=== PATIENT | female | born 1990 | race Caucasian/White ===

== ENCOUNTER 2017-02-23 23:40 | Outpatient (CLI) | payer BC, MEDICAID ==
[2017-02-24 00:12] LABS: APPEARANCE,URINE CLEAR; BILIRUBIN,URINE NEGATIVE (NEGATIVE); GLUCOSE, URINE NEGATIVE (NEGATIVE); KETONES,URINE NEGATIVE (NEGATIVE); LEUKOCYTE ESTERASE,URINE NEGATIVE (NEGATIVE); NITRITE,URINE NEGATIVE (NEGATIVE); PROTEIN,URINE NEGATIVE (NEGATIVE); URINE SPECIFIC GRAVITY 1.009; UROBILINOGEN,URINE NEGATIVE mg/dL (<2.0)
[2017-02-24 00:20] LABS: URINE BARBITURATES SCREEN NEGATIVE; URINE METHADONE SCREEN NEGATIVE; URINE OPIATES LOW NEGATIVE; URINE PHENCYCLIDINE SCREEN NEGATIVE
--- NOTE | 2017-02-25 12:00 | Non Stress Test Report ---
Non Stress Test Datetime Report Generated by CPN: 02/25/2017 12:00 DEMOGRAPHIC EGA NST: 32.2 INDICATION Indication for Study: Ordered by Provider Indication for Study (NST) Other: LC MONITORING Monitor Explained: Monitor Explained; Test Explained; Patient Verbalized Understanding Time on Monitor: 02/23/2017 23:58 Time off Monitor: 02/24/2017 00:52 NST Duration: 54 NST INTERVENTIONS NST Interventions: PO Hydration; Reposition Patient Physician Notified NST: Dr. Alejandro BABY A: [id number] BABY A Movement : Present Contraction Frequency : x2 FHR Baseline : 130 Accelerations : 10X10 Decelerations : None Variability : Moderate 6-25bpm NST Review: Meets Criteria for Reactive NST NST Review and Verified By : Dyan Ortega RN NST Results: Reactive NST REPORT Report Trigger: Send Report
== END 2017-02-24 00:56 | disposition home or self-care (01) ==
LOC: LC 23:40
PROVIDERS: ATTEND Obstetrics & Gynecology
PROC: 4A1HXCZ Monitoring of Products of Conception, Cardiac Rate, External Approach (ICD-10-PCS; principal; 2017-02-23)
DX: O47.03 False labor before 37 completed weeks of gestation, third trimester (principal); Z3A.32 32 weeks gestation of pregnancy
CPT/HCPCS: 59025; 80307; 81001

== ENCOUNTER 2017-02-25 12:00 | Outpatient (CLI) | payer BC, MEDICAID ==
[2017-02-25 12:46] LABS: APPEARANCE,URINE SLIGHTLY-CLOUDY; BILIRUBIN,URINE NEGATIVE (NEGATIVE); GLUCOSE, URINE NEGATIVE (NEGATIVE); KETONES,URINE NEGATIVE (NEGATIVE); LEUKOCYTE ESTERASE,URINE NEGATIVE (NEGATIVE); NITRITE,URINE NEGATIVE (NEGATIVE); PROTEIN,URINE NEGATIVE (NEGATIVE); URINE SPECIFIC GRAVITY 1.016; UROBILINOGEN,URINE NEGATIVE mg/dL (<2.0)
[2017-02-25 12:52] LABS: URINE BARBITURATES SCREEN NEGATIVE; URINE METHADONE SCREEN NEGATIVE; URINE OPIATES LOW NEGATIVE; URINE PHENCYCLIDINE SCREEN NEGATIVE
== END 2017-02-25 12:46 | disposition home or self-care (01) ==
LOC: LC 12:00
PROVIDERS: ATTEND Specialist
PROC: 4A1HXCZ Monitoring of Products of Conception, Cardiac Rate, External Approach (ICD-10-PCS; principal; 2017-02-25)
DX: O47.03 False labor before 37 completed weeks of gestation, third trimester (principal); Z3A.32 32 weeks gestation of pregnancy
CPT/HCPCS: 59025; 80307; 81001

== ENCOUNTER 2017-04-12 08:57 | Inpatient (IN) | payer BC, MEDICAID ==
[2017-04-12 09:35] LABS: APPEARANCE,URINE CLEAR; BILIRUBIN,URINE NEGATIVE (NEGATIVE); GLUCOSE, URINE NEGATIVE (NEGATIVE); KETONES,URINE NEGATIVE (NEGATIVE); LEUKOCYTE ESTERASE,URINE NEGATIVE (NEGATIVE); NITRITE,URINE NEGATIVE (NEGATIVE); PROTEIN,URINE NEGATIVE (NEGATIVE); URINE SPECIFIC GRAVITY 1.005; UROBILINOGEN,URINE NEGATIVE mg/dL (<2.0)
[2017-04-12 09:59] LABS: URINE BARBITURATES SCREEN NEGATIVE; URINE METHADONE SCREEN NEGATIVE; URINE OPIATES LOW NEGATIVE; URINE PHENCYCLIDINE SCREEN NEGATIVE
[2017-04-12] MEDS ORDERED: RINGERS SOLUTION,LACTATED 1,000 ML IV PRN (10:58)
[2017-04-12] MEDS ORDERED: BUPIVACAINE HCL 0.25 % INJ/PF (2.5 MG/1 ML) 30 ML VIAL INFIL ONE (10:58)
[2017-04-12] MEDS ORDERED: BENZOIN/ALOE VERA/STORAX/TOLU TINCTURE 60 ML TP PRN (10:58)
[2017-04-12 12:01] LABS: ABSOLUTE BASOPHILS # (AUTO) 0.1 10^3/uL (0.0-0.2); ABSOLUTE EOSINOPHILS # (AUTO) 0.1 10^3/uL (0.0-0.6); ABSOLUTE LYMPHOCYTES (AUTO) 1.7 10^3/uL (0.5-4.7); ABSOLUTE MONOCYTES (AUTO) 0.3 10^3/uL (0.1-1.4); ABSOLUTE NEUT (AUTO) 7.3 10^3/uL (1.7-8.2); BASOPHILS % (AUTO) 0.5 % (0-2); EOSINOPHILS % (AUTO) 0.6 % (0-6); HEMATOCRIT 36.9 % (36.0-47.0); HEMOGLOBIN 12.2 g/dL (12.0-15.5); HGB HCT DIFFERENCE -0.3; LYMPHOCYTES % (AUTO) 18.4 % (13-45); MEAN CORPUSCULAR HEMOGLOBIN 29.1 pg (27.0-33.4); MEAN CORPUSCULAR VOLUME 88 fl (80-97); MONOCYTES % (AUTO) 3.3 % (3-13); RED BLOOD COUNT 4.19 10^6/uL (3.72-5.28); RED CELL DISTRIBUTION WIDTH 13.1 % (11.5-14.0); SEGMENTED NEUTROPHILS % (AUTO) 77.2 % (42-78); WHITE BLOOD COUNT 9.5 10^3/uL (4.0-10.5)
[2017-04-12] MEDS ORDERED: FENTANYL CITRATE INJ/PF 100 MCG/2 ML AMPUL ONE (14:10)
[2017-04-12] MEDS ORDERED: EPHEDRINE SULFATE INJ 50 MG/1 ML AMPULE ONE (14:11)
[2017-04-12] MEDS ORDERED: FENTANYL/BUPIVACAINE/NS/PF 200 MCG/100 ML RTUINJ EPI ONE (14:11)
[2017-04-12] MEDS ORDERED: PHENYLEPHRINE HCL INJ/PF 10 MG/1 ML SDV ONE (14:11)
[2017-04-12] MEDS ORDERED: BUPIVACAINE HCL 0.25 % INJ/PF (2.5 MG/1 ML) 30 ML VIAL ONE (14:11)
[2017-04-12] MEDS ORDERED: OXYTOCIN/NORMAL SALINE 20 UNIT/1,000 ML RTUINJ ONE ×2 (15:21→20:16)
--- NOTE | 2017-04-12 15:38 | L&D Progress Notes ---
PROGRESS NOTES Datetime Report Generated by CPN: 04/12/2017 15:37 PROGRESS NOTE Impression: Reassuring Heart Rate Procedures: Scalp Electrode; Sterile Vag Exam Plan: Continue Present Management; Augmentation Informed Consent Obtained: Vaginal Delivery Vital Signs : Reviewed; Within Normal Limits Comment: Much more comfortable with epidural AROM with FSE without difficulty Pitocin @ 2 mu Continue pitocin Anticpate VAGINAL EXAM Dilatation: 4 Dilatation: 4 Effacement: 60 Effacement: 80 Station: -1 Station: 0 Contractions: 5-6 MEMBRANES Membranes: Ruptured Membranes: Intact FETUS A FHR - Baseline: 120 Monitoring: External US Variability: Moderate 6-25bpm Accelerations: 15X15 Decelerations: None FHR Category: Category I Estimated Weight (gm): 3600 Presentation: Vertex SIGNATURE SIGNATURE: [id number];[id number] SIGNATURE: [id number] Assignment: Shireen Cardona MD Signature: with User ID: [email or web address] : with User ID: [email or web address]
[2017-04-12] MEDS ORDERED: LIDOCAINE 2%/EPINEPHRINE INJ 20 ML VIAL ONE (17:58)
[2017-04-12] MEDS ORDERED: SODIUM BICARBONATE 8.4% INJ 50 MEQ/50 ML DISP.SYRIN ONE (17:59)
[2017-04-12] MEDS: FENTANYL/BUPIVACAINE/NS/PF 100 ML EPI PRN ×3 (19:16→22:55)
[2017-04-12] MEDS ORDERED: MISOPROSTOL 0.2 MG TABLET ONE (20:15)
[2017-04-12] MEDS ORDERED: LIDOCAINE 1% INJ-PF (10 MG/ML) 30 ML SDV ONE (20:16)
[2017-04-12] MEDS ORDERED: DIPH/PERTUSS(ACELL)/TETANUS VAC/PF 0.5 ML SYR (>=10YO) IM PRN (21:18)
[2017-04-12] MEDS ORDERED: ACETAMINOPHEN WITH CODEINE #3 TABLET PO PRN (21:18)
[2017-04-12] MEDS ORDERED: MEASLES,MUMPS&RUBELLA VACC/PF 0.5 ML VIAL SUBCUT PRN (21:18)
[2017-04-12] MEDS ORDERED: OXYTOCIN/NORMAL SALINE 1,000 ML IV PRN (21:18)
[2017-04-12] MEDS ORDERED: DIBUCAINE 1% OINTMENT 28 GM TP PRN (21:18)
[2017-04-12] MEDS ORDERED: ZOLPIDEM TARTRATE 5 MG TABLET PO PRN (21:18)
[2017-04-12] MEDS ORDERED: BENZOCAINE/MENTHOL AEROSOL SPRAY 56 ML TOP PRN (21:18)
[2017-04-12] MEDS ORDERED: ACETAMINOPHEN WITH CODEINE #3 TABLET ONE (22:07)
[2017-04-12] MEDS ORDERED: IBUPROFEN 800 MG TABLET ONE (22:07)
[2017-04-12] MEDS ORDERED: ONDANSETRON HCL INJ/PF 4 MG/2 ML SDV ONE (23:10)
--- NOTE | 2017-04-13 00:15 | Admission Physical ---
Datetime Report Generated by CPN: 04/13/2017 00:14 CURRENT ADMISSION Hx Assessment: The History has been Reviewed and is Current Chief Complaint: Uterine Contractions Indication for Induction: Not Applicable Admit Plan: Admit to Unit; Initiate Labor Augmentation Protocol ALLERGIES Medication Allergies: Yes Medication Allergies: Penicillins/SV/Anaphylaxis (02/25/2014); Bleach (Sodium Hypochlorite) (02/24/2017); aspirin/SV/BREATHING DIFFI (02/25/2014) Medication Allergies: Penicillins/SV/Anaphylaxis (02/25/2014); aspirin/SV/BREATHING DIFFI (02/25/2014) Latex: No Latex Allergies Food Allergies: None Environmental Allergies: None OBSTETRICAL HISTORY EDC: 04/18/2017 00:00 : 3 Para: 2 Term: 1 : 1 Gestational Diabetes: No Rh Sensitization: No Incompetent Cervix: No VETO: No Infertility: No ART Treatment: No Uterine Anomaly: No IUGR: No Hx Previous C/S: No Macrosomia: No Hx Loss/Stillborn: No PIH: No Hx : No Placenta Previa/Abruption: No Depression/PP Depression: No PTL/PROM: No Post Hemorrhage: No Current Procedures: Ultrasound; NST Obstetrical History Comments: G1 - 2011 - , 36 weeks, boy G2 - 2014 - , girl G3 - current pregnany - surrogate SEE RECORDS Alcohol: No Marijuana : No Cocaine: No Other Illicit Drugs: No Cigarettes: Never Smoker. [id number] MEDICAL HISTORY Diabetes: No Blood Transfusion: No Pulmonary Disease (Asthma, TB): No Breast Disease: No Hypertension: No Client Specialist Surgery: No Heart Disease: No Hosp/Surgery: No Autoimmune Disorder: No Anesthetic Complications: No Kidney Disease: Yes Abnormal Pap Smear: No Neuro/Epilepsy: No Psychiatric Disorders: No Other Medical Diseases: No Hepatitis/Liver Disease: No Significant Family History: No Varicosities/Phlebitis: No Trauma/Violence : No Thyroid Dysfunction: No Medical History Comments: UTI's and Kidney Infections; 2 lypomas removed from back in 2008; T_A removed INFECTIOUS HISTORY Gonorrhea: No Genital Herpes: No Chlamydia: No Tuberculosis: No Syphilis: No Hepatitis: No HIV/AIDS Exposure: No Rash or Viral Illness: No HPV: No PHYSICAL EXAM General: Normal HEENT: Normal Neurologic: Normal Thyroid: Deferred Heart: Normal Lungs: Normal Breast: Deferred Back: Normal Abdomen: Normal Genitourinary Exam: Normal Extremities: Normal DTRs: Normal Pelvic Type: Adequate Physical Exam Comments: pelvis proved 8lbs 4oz Vital Signs: Reviewed VAGINAL EXAM Dilatation: 4 Dilatation: 4 Effacement: 60 Effacement: 80 Station: -1 Station: 0 Contraction Comments: 5-6 MEMBRANES Membranes: Ruptured Membranes: Intact FETUS A EGA: 39.1 Monitoring: External US FHR- Baseline: 135 Variability: Moderate 6-25bpm Accelerations: 15X15 Decelerations: None FHR Category: Category I Estimated Weight (gm): 3600 Presentation: Vertex Admit Comment: Ctx since last night, increaseing in intensity. Denies lof, states active fetus, denies bleeding. Pt is a surrogate this , intended father at bedside with pt has been uncomplicated. GBS neg. Labor, admit to L _ D Pt desires epidural Will augment with pitocin prn Will AROM after epidural. Anticipate PLANS FOR LABOR AND DELIVERY Labor and Delivery: Cord Blood Donation Pain Management: Epidural Feeding Preference: Breast Benefit of Breast Feed Discussed: Yes Circumcision: No INFORMED CONSENT Informed Consent Obtained: Vaginal Delivery Assignment: Shireen Cardona MD Signature: with User ID: [email or web address] : with User ID: [email or web address]
[2017-04-13] MEDS: IBUPROFEN 800 MG TABLET PO SCH ×3 (06:07→21:01)
[2017-04-13] MEDS: ACETAMINOPHEN WITH CODEINE #3 TABLET PO PRN ×4 (06:09→21:02)
[2017-04-13 08:23] LABS: HEMATOCRIT 32.6 % (36.0-47.0); HEMOGLOBIN 10.9 g/dL (12.0-15.5); HGB HCT DIFFERENCE 0.1; MEAN CORPUSCULAR HEMOGLOBIN 29.1 pg (27.0-33.4); MEAN CORPUSCULAR HGB CONC 33.3 g/dL (32.0-36.0); MEAN CORPUSCULAR VOLUME 87 fl (80-97); RED BLOOD COUNT 3.74 10^6/uL (3.72-5.28); RED CELL DISTRIBUTION WIDTH 13.2 % (11.5-14.0); WHITE BLOOD COUNT 9.1 10^3/uL (4.0-10.5)
[2017-04-13] MEDS: FERROUS SULFATE 325 MG TABLET PO SCH ×2 (09:41→17:04)
[2017-04-13] MEDS: DOCUSATE SODIUM 100 MG CAPSULE PO SCH ×2 (09:41→17:04)
[2017-04-13] MEDS: PRENATAL VITAMIN W-O CA NO5/FE FUMARATE/FA CAPSULE PO SCH (09:41)
[2017-04-13] MEDS: SENNOSIDES/DOCUSATE 8.6-50 MG 1 EACH TABLET PO SCH (09:42)
--- NOTE | 2017-04-13 12:37 | PDOC PROGRESS REPORT ---
Subjective-OB Subjective: Post Delivery Day: 27 year old G3 now P3. Voiding, ambulating and pumping without difficulty. Denies any needs at this time Physical Exam (OB) Vital Signs: Temp Pulse Resp BP Pulse Ox 98.2 F 77 15 111/68 99 04/13/17 08:10 04/13/17 08:10 04/13/17 08:10 04/13/17 08:10 04/13/17 08:10 Intake & Output 04/12/17 04/13/17 04/14/17 06:59 06:59 06:59 Intake Total 900 Balance 900 Weight 87.75 kg - General General Appearance: Appears well In distress: None - Episiotomy/Laceration Site Condition: N/A - Lochia Lochia Amount: Small 10-25 ml Lochia Color: Rubra/Red - Abdomen Description: Soft, Round Hernia Present: No Fundal Description: Firm, Midline Fundal Height: u/u - u/2 - Respiratory Respiratory Status: No respiratory distress - Extremities Upper extremity: Normal inspection Lower extremities: Normal inspection - Neurological Cognition: Normal Orientation: AAOx4 - Psychological Associated symptoms: Normal affect, Normal mood Objective-Diagnostic Laboratory: 04/13/17 08:07 04/12/17 04/12/17 04/13/17 11:45 11:45 08:07 WBC 9.5 9.1 RBC 4.19 3.74 Hgb 12.2 10.9 L Hct 36.9 32.6 L MCV 88 87 MCH 29.1 29.1 MCHC 33.0 33.3 RDW 13.1 13.2 Plt Count 200 160 Seg Neutrophils % 77.2 Lymphocytes % 18.4 Monocytes % 3.3 Eosinophils % 0.6 Basophils % 0.5 Absolute Neutrophils 7.3 Absolute Lymphocytes 1.7 Absolute Monocytes 0.3 Absolute Eosinophils 0.1 Absolute Basophils 0.1 Blood Type B POSITIVE Antibody Screen NEGATIVE Assessment and Plan(PN) - Assessment and Plan (1) Vaginal delivery Is this a current diagnosis for this admission?: YesPlan: continue stay (2) Acute blood loss anemia Is this a current diagnosis for this admission?: YesPlan: ferrous sulfate supplementation and inc. dietary iron - Time Spent with Patient Time with patient: 15-25 minutes Medications reviewed and adjusted accordingly: Yes - Disposition Anticipated Discharge: Home Within: within 24 hours
--- NOTE | 2017-04-13 13:57 | Delivery Summary ---
Del Sum A-C Datetime Report Generated by CPN: 04/13/2017 13:57 DELIVERY PERSONNEL DELIVERY PERSONNEL: [id number];[id number] DELIVERY PERSONNEL: [id number];[id number] DELIVERY PERSONNEL: [id number] Delivery Doctor:: Shireen Cardona MD Labor and Delivery Nurse:: Cady Glover, MARE Nursery Nurse:: Marianna Grier RN Metal Casket Assembler/PRACTICE LEAD: Ginger Burciaga, ST MATERNAL INFORMATION Delivery Anesthesia: Epidural; Pudendal Medications After Delivery: Pitocin Drip 20 Units/1000ml NSS Estimated Blood Loss (ml): 250 Maternal Complications: None Provider Comments: Epidural not working. REviewed pudendal block with pt and Pudendal Block performed in usual fashion with 20ml of lidocaine. VMI delivered in ADRIAN presentation with loose nuchal cord delivered through. Shoulders and body delivered without difficulty. Cord doubly clamped and cut and to warmer for NRP. Cord blood obtained for cord collection kit. Placenta delivered intact spontaneously. FF at U. No perineal laceration. Patient and baby stable upon provider leaving the room. Apgars 9/9. weight pending. LABOR SUMMARY EDC: 04/18/2017 00:00 No. Babies in Womb: 1 Attempted: No Labor Anesthesia: Epidural LABOR INFORMATION Reason for Induction: Not Applicable Onset of Labor: 04/12/2017 09:00 Complete Dilatation: 04/12/2017 20:30 Oxytocin: Augmentation Group B Beta Strep: NEGATIVE Antibiotics # of Doses: 0 Steroids Given: None Reason Steroids Not Administered: Not Applicable MEMBRANES Membranes Rupture Method: Artificial Rupture of Membranes: 04/12/2017 15:29 Length of Rupture (hr): 5.13 Amniotic Fluid Color: Clear Amniotic Fluid Amount: Small Amniotic Fluid Odor: Normal STAGES OF LABOR Stage 1 hr: 11 Stage 1 min: 30 Stage 2 hr: 0 Stage 2 min: 7 Stage 3 hr: 0 Stage 3 min: 8 Total Time in Labor hr: 11 Total Time in Labor min: 45 VAGINAL DELIVERY Episiotomy: None Laceration Extension: N/A Laceration Type: None Laceration Repair: Not Applicable Laceration Repair Note: no perineal laceration Sponge Count Correct: N/A (Annotations: Data stored by [facility] on behalf of user) Sponge Count Correct: Yes Sharps Count Correct: Yes CSECTION DELIVERY Primary Indication: N/A Secondary Indication: N/A CSection Incision: N/A BABY A INFORMATION Infant Delivery Date/Time: 04/12/2017 20:37 Method of Delivery: Vaginal Born in Route : No : N/A Forceps: N/A Vacuum Extraction: N/A Shoulder Dystocia : No PRESENTATION/POSITION BABY A Presentation: Cephalic Presentation: Cephalic Cephalic Presentation: Vertex Vertex Position: OA Breech Presentation: N/A PLACENTA INFORMATION BABY A Placenta Delivery Time : 04/12/2017 20:45 Placenta Method of Delivery: Spontaneous Placenta Status: Delivered SCORES BABY A Heart Rate 1 min: >100 bpm Resp Effort 1 min: Good Cry Reflex Irritability 1 min: Cough or Sneeze or Pulls Away Muscle Tone 1 min: Active Motion Color 1 min: Body [place], Extremities Blue Resuscitation Effort 1 min: Tactile Stimulation SCORE 1 MIN: 9 Heart Rate 5 min: >100 bpm Resp Effort 5 min: Good Cry Reflex Irritability 5 min: Cough or Sneeze or Pulls Away Muscle Tone 5 min: Active Motion Color 5 min: Body [place], Extremities Blue Resuscitation Effort 5 min: N/A SCORE 5 MIN: 9 INFORMATION BABY A Gestational Age at Delivery: 39.1 Gestational Status: Full Term- 39- 40.6 Weeks Outcome : Liveborn Condition : Stable Sex: Male IDENTIFICATION BABY A Infant Verification Date/Time: 04/12/2017 20:44 ID Band Number: [id number] Mother's Name Verified: Yes Infant RN Verifying Infant: R Juan, RNC Additional Verifying Personnel: D [employer], US WEIGHT/LENGTH BABY A Birthweight (gm): 3280 Weight (lb): 7 Infant Weight (oz): 4 Infant Length (in): 20.00 Infant Length (cm): 50.80 CORD INFORMATION BABY A No. Cord Vessels: 3 Nuchal Cord : Around Neck x1, Loose Cord Blood Taken: Yes-For Storage (Mom's Blood type +) Infant Suction: Mouth; Nose ASSESSMENT BABY A Complications: None Physical Findings at Delivery: Within Normal Limits Respirations: Appears Normal Skin to Skin: No Skin to Skin Time (min): 0 [facility]/ALS Called : No Transferred To: Remains with Mother BABY B INFORMATION : N/A SIGNATURES Signature: with User ID: [email or web address]
[2017-04-13] MEDS ORDERED: ONDANSETRON HCL 8 MG TABLET PO PRN (19:23)
[2017-04-14] MEDS: ACETAMINOPHEN WITH CODEINE #3 TABLET PO PRN ×2 (02:06→07:58)
[2017-04-14] MEDS: IBUPROFEN 800 MG TABLET PO SCH (05:57)
[2017-04-14 08:10] VITALS: BP 115/68
[2017-04-14] MEDS: FERROUS SULFATE 325 MG TABLET PO SCH (10:13)
[2017-04-14] MEDS: DOCUSATE SODIUM 100 MG CAPSULE PO SCH (10:13)
[2017-04-14] MEDS: PRENATAL VITAMIN W-O CA NO5/FE FUMARATE/FA CAPSULE PO SCH (10:13)
[2017-04-14] MEDS: SENNOSIDES/DOCUSATE 8.6-50 MG 1 EACH TABLET PO SCH (10:13)
--- NOTE | 2017-04-14 10:25 | PDOC PROGRESS REPORT ---
Subjective-OB Subjective: Post Delivery Day: 27 year old. Denies any needs at this time. Ready to go home. Physical Exam (OB) Vital Signs: Temp Pulse Resp BP Pulse Ox 97.8 F 69 15 115/68 100 04/14/17 08:00 04/14/17 08:00 04/14/17 08:00 04/14/17 08:00 04/14/17 08:00 Intake & Output 04/13/17 04/14/17 04/15/17 06:59 06:59 06:59 Intake Total 900 500 Balance 900 500 Weight 87.75 kg - Lochia Lochia Amount: Small 10-25 ml Lochia Color: Rubra/Red - Abdomen Description: Tender, Soft, Round Hernia Present: No Bowel Sounds: Normoactive Flatus Presence: Present Stool: No Fundal Description: Firm Fundal Height: u/u - u/2 Objective-Diagnostic Laboratory: 04/13/17 08:07 Assessment and Plan(PN) - Time Spent with Patient Medications reviewed and adjusted accordingly: Yes - Disposition Anticipated Discharge: Home
--- NOTE | 2017-04-14 10:33 | PDOC DISCHARGE SUMMARY ---
Final Diagnosis Discharge Date: 04/14/17 - Final Diagnosis (1) Acute blood loss anemia Is this a current diagnosis for this admission?: Yes (2) Surrogate Is this a current diagnosis for this admission?: Yes (3) Vaginal delivery Is this a current diagnosis for this admission?: Yes Discharge Data - Discharge Medication Home Medications: Pnv No.122/Iron/Folic Acid [ Multi Tablet] 1 each PO DAILY 02/24/17 Docusate Sodium [Colace 100 mg Capsule] 100 mg PO BID #30 capsule 04/14/17 Gestational Age: 39.1 wks Reason(s) for Admission: Onset of Labor Procedures: Ultrasound Intrapartum Procedure(s): Spontaneous Vaginal Delivery - Data Baby 1 Male at 1 minute: 9 at 5 minutes: 9 Weight: 3.289 kg Home with Mother: No - Surrogate Complications: No - Diagnosis Test Laboratory: Temp Pulse Resp BP Pulse Ox 97.8 F 69 15 115/68 100 04/14/17 08:00 04/14/17 08:00 04/14/17 08:00 04/14/17 08:00 04/14/17 08:00 04/12/17 04/12/17 04/13/17 09:20 11:45 08:07 RBC 4.19 3.74 Hgb 12.2 10.9 L Hct 36.9 32.6 L Urine Opiates Screen NEGATIVE - Discharge information/Instructions Discharge Activity: Activity As Tolerated, Balance Activity w/Rest, Pelvic Rest , Slowly Increase Activity, No tub bath Discharge Diet: Regular Disposition: HOME, SELF-CARE Follow up with: [facility] in: 4, Weeks
== END 2017-04-14 12:21 | disposition home or self-care (01) | DRG 775 ==
LOC: LC 08:57 → LR 10:52 → 2S 23:20
PROVIDERS: ADMIT Student in an Organized Health Care Education/Training Program; ATTEND Student in an Organized Health Care Education/Training Program
PROC: 10E0XZZ Delivery of Products of Conception, External Approach (ICD-10-PCS; principal; 2017-04-12)
PROC: 4A0HXCZ Measurement of Products of Conception, Cardiac Rate, External Approach (ICD-10-PCS; 2017-04-12)
DX: O69.81X0 Labor and delivery complicated by cord around neck, without compression, not applicable or unspecified (principal); D62 Acute posthemorrhagic anemia; O99.02 Anemia complicating childbirth; Z37.0 Single live birth; Z3A.39 39 weeks gestation of pregnancy; Z88.0 Allergy status to penicillin
CPT/HCPCS: 36415; 80307; 81005; 85025; 85027; 86592; 86850; 86900; 86901; J2370; J2405; J2590; J3010; J3490; S0119

== ENCOUNTER 2017-04-25 11:39 | Day surgery (SDC) | payer BC, MEDICAID ==
[2017-04-25 12:48] LABS: HEMATOCRIT 35.9 % (36.0-47.0); HEMOGLOBIN 11.5 g/dL (12.0-15.5); HGB HCT DIFFERENCE -1.4; MEAN CORPUSCULAR HEMOGLOBIN 28.4 pg (27.0-33.4); MEAN CORPUSCULAR HGB CONC 32.2 g/dL (32.0-36.0); MEAN CORPUSCULAR VOLUME 88 fl (80-97); RED BLOOD COUNT 4.06 10^6/uL (3.72-5.28); WHITE BLOOD COUNT 5.6 10^3/uL (4.0-10.5)
[2017-04-25] MEDS ORDERED: HYDROMORPHONE HCL INJ/PF 2 MG/ML AMPULE ONE (13:03)
[2017-04-25] MEDS ORDERED: DEXAMETHASONE SOD PHOSPHATE INJ 4 MG/1 ML VIAL ONE (13:04)
[2017-04-25] MEDS ORDERED: MIDAZOLAM 2 MG/2 ML INJ ONE (13:04)
[2017-04-25] MEDS ORDERED: PROPOFOL INJ 200 MG/20 ML VIAL IV ONE (13:04)
[2017-04-25] MEDS ORDERED: ONDANSETRON HCL INJ/PF 4 MG/2 ML SDV ONE ×2 (13:04→14:13)
[2017-04-25] MEDS ORDERED: DIPHENHYDRAMINE HCL 50 MG/ML VIAL IV PRN (13:33)
[2017-04-25] MEDS ORDERED: MEPERIDINE HCL/PF INJ 25 MG/1 ML DISP.SYRIN IV PRN (13:33)
[2017-04-25] MEDS ORDERED: ONDANSETRON HCL INJ/PF 4 MG/2 ML SDV IV PRN (13:33)
[2017-04-25] MEDS ORDERED: FENTANYL CITRATE INJ/PF 100 MCG/2 ML AMPUL IV PRN ×3 (13:33)
[2017-04-25] MEDS ORDERED: RINGERS SOLUTION,LACTATED 1,000 ML IV PRN ×2 (13:50→14:25)
[2017-04-25] MEDS: FENTANYL CITRATE INJ/PF 100 MCG/2 ML AMPUL ONE ×2 (14:05→14:10)
[2017-04-25] MEDS ORDERED: KETOROLAC TROMETHAMINE INJ/PF 30 MG/1 ML SDV ONE (14:25)
[2017-04-25] MEDS ORDERED: MORPHINE SULFATE 10 MG/ML INJ INJ PRN ×2 (14:26→14:59)
[2017-04-25] MEDS ORDERED: OXYCODONE-ACETAMINOPHEN 5-325 MG TABLET PO PRN ×2 (14:26→14:27)
[2017-04-25] MEDS ORDERED: IBUPROFEN 800 MG TABLET PO PRN ×2 (14:26→15:00)
[2017-04-25 16:00] VITALS: BP 110/70
--- NOTE | 2017-04-25 16:29 | OPERATIVE REPORT E ---
Operative Report NAME: JULISSA EPSTEIN : 1990 AGE: 27Y DATE OF SURGERY: 04/25/2017 ROOM: PREOPERATIVE DIAGNOSIS: Retained products of conception. POSTOPERATIVE DIAGNOSIS: Retained products of conception. PROCEDURE: Suction dilation and curettage. SURGEON: IDA LIN M.D. ANESTHESIA: Dr. Mix with general endotracheal. FINDINGS: Uterus sounded to approximately 12 weeks. Small to moderate amount of retained placental appearing tissue. Some of the tissue had a purulent appearance that could indicate some low lying infection but otherwise just normal decidual placental type tissue. ESTIMATED BLOOD LOSS: About 20 mL. PROCEDURE IN DETAIL: The patient was taken to the operating room, prepared and draped in a normal sterile fashion in a dorsal lithotomy position. Under sterile conditions, an in-and-out catheter was passed through the bladder and drained approximately 200 mL of clear urine. A sterile speculum was then placed into the vagina and the cervix was grasped on the anterior lip with a single tooth tenaculum. The uterus was then sounded to the above finding. It was noted at the beginning of the procedure that the cervical os was still quite open. The cervix was then dilated to accommodate an 8 mm curved curette for the suction D and C. A Kevorkian curette was first passed and a small amount of placental tissue was obtained. A suction D and C was then performed in a normal fashion with good hemostasis afterwards. A Kevorkian curette was passed once more and the endometrial cavity was scraped adequately and noted to have 360 degrees of grit with the curette indicating that most likely there should be no products of conception retained at this point. Instruments were then removed. The patient was taken down from the dorsal lithotomy position and taken to PACU in stable condition. Sponge, lap, and needle counts were correct x2. DICTATING PHYSICIAN: IDA LIN M.D. [id number] PHY#: [id number] ID: [id number] JOB#: [id number] ACCT: [id number] cc:IDA LIN M.D. >
== END 2017-04-25 15:58 | disposition home or self-care (01) ==
LOC: OROUT 11:39
PROVIDERS: ATTEND Obstetrics & Gynecology
PROC: 10D17ZZ Extraction of Products of Conception, Retained, Via Natural or Artificial Opening (ICD-10-PCS; principal; 2017-04-25 13:30)
DX: O73.1 Retained portions of placenta and membranes, without hemorrhage (principal); N93.9 Abnormal uterine and vaginal bleeding, unspecified; Z79.899 Other long term (current) drug therapy; Z88.0 Allergy status to penicillin; Z88.6 Allergy status to analgesic agent
CPT/HCPCS: 36415; 85027; 88305 ×2; 59812; J2250; J1100; J3010; J1885; J1170; J2405; J2704; 940

== ENCOUNTER 2018-04-11 22:56 | Emergency (ER) | payer SELFPAY ==
[2018-04-11 23:26] VITALS: BP 112/64
== END 2018-04-12 02:24 | disposition left against medical advice (07) ==
LOC: ER 22:56
DX: Z53.21 Procedure and treatment not carried out due to patient leaving prior to being seen by health care provider (principal)

== ENCOUNTER → 2018-08-31 | Outpatient (CLI) | payer BC ==
--- NOTE | 2018-08-31 13:13 | RADIOLOGY REPORT (SQ) ---
EXAM DESCRIPTION: U/S ABDOMEN COMPLETE W/O DOP COMPLETED DATE/TIME: 08/31/2018 12:48 pm REASON FOR STUDY: PELVIC AND PERINEAL PAIN (R10.2) R10.2 PELVIC AND PERINEAL PAIN COMPARISON: None. TECHNIQUE: Dynamic and static grayscale images acquired of the abdomen and recorded on PACS. Additio nal selected color Doppler and spectral images recorded. LIMITATIONS: Midline bowel gas FINDINGS: PANCREAS: Not well seen due to midline bowel gas LIVER: No masses. Echotexture normal. LIVER VASCULATURE: Normal directional flow of the main portal vein and hepatic veins. GALLBLADDER: No stones. Normal wall thickness. No pericholecystic fluid. ULTRASOUND-DETECTED DANIELLE'S SIGN: Negative. INTRAHEPATIC DUCTS AND COMMON DUCT: CBD and intrahepatic ducts normal caliber. No filling defects. INFERIOR VENA CAVA: Normal flow. AORTA: No aneurysm. RIGHT KIDNEY: Normal size. Normal echogenicity. No solid or suspicious masses. No hydronephros is. No calcifications. LEFT KIDNEY: Normal size. Normal echogenicity. No solid or suspicious masses. No hydronephrosi s. No calcifications. SPLEEN: Normal size. No solid masses. PERITONEAL AND PLEURAL SPACES: No ascites or effusions. OTHER: No other significant finding. IMPRESSION: NORMAL ABDOMINAL ULTRASOUND. TECHNICAL DOCUMENTATION: JOB ID: [id number] [employer]- All Rights Reserved Reading location - IP/workstation name: [email or web address]
== END ==
LOC: RAD 10:53
PROVIDERS: ATTEND Obstetrics & Gynecology
DX: R10.2 Pelvic and perineal pain (principal)
CPT/HCPCS: 76700

== ENCOUNTER 2018-10-06 11:10 | Outpatient (CLI) | payer BC, MEDICAID ==
[2018-10-06] MEDS ORDERED: BETAMET ACET/BETAMET NA INJ 6 MG/1 ML ONE (11:38)
[2018-10-06] MEDS ORDERED: BETAMET ACET/BETAMET NA INJ 6 MG/1 ML IM ONE (11:44)
--- NOTE | 2018-10-06 12:37 | Non Stress Test Report ---
Non Stress Test Datetime Report Generated by CPN: 10/06/2018 12:37 DEMOGRAPHIC EGA NST: 32.2 INDICATION Indication for Study: Ordered by Provider VITAL SIGNS Temperature - NST: 98.3 RESP - NST: 16 MONITORING Monitor Explained: Monitor Explained Time on Monitor: 10/06/2018 11:25 Time off Monitor: 10/06/2018 12:08 NST Duration: 43 NST INTERVENTIONS NST Interventions: PO Hydration; Reposition Patient Physician Notified NST: A. Dugan CNM BABY A: [id number] BABY A Movement : Present Contraction Frequency : irritability FHR Baseline : 135 Accelerations : 15X15 Decelerations : None Variability : Moderate 6-25bpm NST Review: Meets Criteria for Reactive NST NST Review and Verified By : Elier Bishop RN NSNeda Results: Reactive NST REPORT Report Trigger: Send Report
== END 2018-10-06 12:25 | disposition home or self-care (01) ==
LOC: LC 11:10
PROVIDERS: ATTEND Obstetrics & Gynecology
DX: Z34.93 Encounter for supervision of normal pregnancy, unspecified, third trimester (principal)
CPT/HCPCS: 59025; J0702

== ENCOUNTER 2018-10-07 11:14 | Outpatient (CLI) | payer BC, MEDICAID ==
[2018-10-07] MEDS ORDERED: BETAMET ACET/BETAMET NA INJ 6 MG/1 ML ONE (11:27)
[2018-10-07] MEDS ORDERED: BETAMET ACET/BETAMET NA INJ 6 MG/1 ML IM ONE (11:35)
== END 2018-10-07 11:45 | disposition home or self-care (01) ==
LOC: LC 11:14
PROVIDERS: ATTEND Obstetrics & Gynecology
PROC: 4A1HXCZ Monitoring of Products of Conception, Cardiac Rate, External Approach (ICD-10-PCS; principal; 2018-10-07)
DX: Z34.83 Encounter for supervision of other normal pregnancy, third trimester (principal)
CPT/HCPCS: 59025; 96372; J0702

== ENCOUNTER 2018-11-07 01:17 | Outpatient (CLI) | payer BC, MEDICAID ==
[2018-11-07 03:55] LABS: APPEARANCE,URINE SLIGHTLY-CLOUDY; BILIRUBIN,URINE NEGATIVE (NEGATIVE); COLOR,URINE YELLOW; GLUCOSE, URINE NEGATIVE (NEGATIVE); KETONES,URINE NEGATIVE (NEGATIVE); LEUKOCYTE ESTERASE,URINE NEGATIVE (NEGATIVE); NITRITE,URINE NEGATIVE (NEGATIVE); PROTEIN,URINE NEGATIVE (NEGATIVE); URINE SPECIFIC GRAVITY 1.015; UROBILINOGEN,URINE NEGATIVE mg/dL (<2.0)
--- NOTE | 2018-11-07 03:57 | Non Stress Test Report ---
Non Stress Test Datetime Report Generated by CPN: 11/07/2018 03:57 DEMOGRAPHIC Test Number: 2 EGA NST: 36.6 INDICATION Indication for Study: Ordered by Provider MONITORING Monitor Explained: Monitor Explained; Test Explained; Patient Verbalized Understanding Time on Monitor: 11/07/2018 01:46 Time off Monitor: 11/07/2018 02:25 NST Duration: 39 NST INTERVENTIONS NST Interventions: PO Hydration Physician Notified NST: Dr Alejandro BABY A: [id number] BABY A Movement : Present Contraction Frequency : 4-5 FHR Baseline : 130 Accelerations : 15X15 Decelerations : None Variability : Moderate 6-25bpm NST Review: Meets Criteria for Reactive NST NST Review and Verified By : CONCHA Braga NST Results: Reactive NST REPORT Report Trigger: Send Report
[2018-11-07 04:14] LABS: URINE AMPHETAMINES SCREEN NEGATIVE; URINE BARBITURATES SCREEN NEGATIVE; URINE BENZODIAZEPINES SCREEN NEGATIVE; URINE COCAINE SCREEN NEGATIVE; URINE MARIJUANA (THC) SCREEN NEGATIVE; URINE METHADONE SCREEN NEGATIVE; URINE PHENCYCLIDINE SCREEN NEGATIVE
== END 2018-11-07 03:50 | disposition home or self-care (01) ==
LOC: LC 01:17
PROVIDERS: ATTEND Obstetrics & Gynecology
PROC: 4A1HXCZ Monitoring of Products of Conception, Cardiac Rate, External Approach (ICD-10-PCS; principal; 2018-11-07)
DX: O47.03 False labor before 37 completed weeks of gestation, third trimester (principal); Z3A.36 36 weeks gestation of pregnancy
CPT/HCPCS: 59025; 80307; 81005

== ENCOUNTER 2018-11-12 00:21 | Inpatient (IN) | payer BC, MEDICAID ==
[2018-11-12] MEDS ORDERED: RINGERS SOLUTION,LACTATED 1,000 ML IV PRN (00:26)
[2018-11-12] MEDS ORDERED: CLINDAMYCIN 900 MG/D5W RTU 900 MG/50 ML RTUPB IV ONE (00:39)
[2018-11-12] MEDS ORDERED: OXYTOCIN 10 UNIT/ML VIAL ONE (00:48)
[2018-11-12] MEDS ORDERED: OXYTOCIN/NORMAL SALINE 20 UNIT/1,000 ML RTUINJ ONE (00:48)
[2018-11-12] MEDS ORDERED: LIDOCAINE 1% INJ-PF (10 MG/ML) 30 ML SDV ONE (00:48)
[2018-11-12] MEDS ORDERED: MISOPROSTOL 0.2 MG TABLET ONE (00:48)
[2018-11-12] MEDS ORDERED: IBUPROFEN 800 MG TABLET ONE ×2 (00:58→09:13)
[2018-11-12] MEDS ORDERED: ACETAMINOPHEN WITH CODEINE #3 TABLET ONE ×3 (00:58→09:15)
[2018-11-12 00:59] LABS: HEMATOCRIT 35.1 % (36.0-47.0); HEMOGLOBIN 11.8 g/dL (12.0-15.5); MEAN CORPUSCULAR HEMOGLOBIN 28.1 pg (27.0-33.4); MEAN CORPUSCULAR HGB CONC 33.7 g/dL (32.0-36.0); MEAN CORPUSCULAR VOLUME 83 fl (80-97); PLATELET COUNT 225 10^3/uL (150-450); RED BLOOD COUNT 4.21 10^6/uL (3.72-5.28); RED CELL DISTRIBUTION WIDTH 13.9 % (11.5-14.0); WHITE BLOOD COUNT 13.3 10^3/uL (4.0-10.5)
--- NOTE | 2018-11-12 01:00 | Admission Physical ---
Datetime Report Generated by CPN: 11/12/2018 00:59 CURRENT ADMISSION Chief Complaint: Uterine Contractions; Suspected Ruptured Membranes Indication for Induction: Not Applicable Admit Impression : Term, Intrauterine ; No Active Labor; Ruptured Membranes Admit Plan: Admit to Unit; Initiate Labor Protocol ALLERGIES Medication Allergies: Penicillins/SV/Anaphylaxis (11/07/2018); Bleach (Sodium Hypochlorite) (11/07/2018); aspirin/SV/BREATHING DIFFI (11/07/2018) OBSTETRICAL HISTORY EDC: 11/29/2018 00:00 : 4 Para: 3 Livin Gestational Diabetes: No Rh Sensitization: No Incompetent Cervix: No VETO: No Infertility: No ART Treatment: No Uterine Anomaly: No IUGR: No Hx Previous C/S: No Macrosomia: No Hx Loss/Stillborn: No PIH: No Hx : No Placenta Previa/Abruption: No Depression/PP Depression: No PTL/PROM: Yes Post Hemorrhage: No Current Procedures: Ultrasound Obstetrical History Comments: G1: 2011- 36.6 weeks G2: 2014- weeks G3: 39.6 surrogate G4: IVF surrogate - echogenic bowel on fetus (normal echo) SEE RECORDS Alcohol: No Marijuana : No Cocaine: No Other Illicit Drugs: No Cigarettes: Never Smoker. [id number] MEDICAL HISTORY Diabetes: No Blood Transfusion: No Pulmonary Disease (Asthma, TB): No Breast Disease: No Hypertension: No Organ Pipe Voicer Surgery: No Heart Disease: No Hosp/Surgery: Yes Autoimmune Disorder: No Anesthetic Complications: No Kidney Disease: No Abnormal Pap Smear: No Neuro/Epilepsy: No Psychiatric Disorders: No Other Medical Diseases: No Hepatitis/Liver Disease: No Significant Family History: No Varicosities/Phlebitis: No Trauma/Violence : No Thyroid Dysfunction: No Medical History Comments: childbirth, tonsillectomy retained placenta with G3 D_C INFECTIOUS HISTORY Gonorrhea: No Genital Herpes: No Chlamydia: No Tuberculosis: No Syphilis: No Hepatitis: No HIV/AIDS Exposure: No Rash or Viral Illness: No HPV: No PHYSICAL EXAM General: Normal HEENT: Normal Neurologic: Normal Thyroid: Normal Heart: Normal Lungs: Normal Breast: Normal Back: Normal Abdomen: Normal Genitourinary Exam: Normal Extremities: Normal DTRs: Normal Pelvic Type: Adequate Vital Signs: Reviewed VAGINAL EXAM Dilatation: 4 Effacement: 50 Station: -1 MEMBRANES Pooling: Positive Membranes: Ruptured Amniotic Fluid Color: Clear FETUS A EGA: 37.4 Monitoring: External US FHR- Baseline: 130 Variability: Moderate 6-25bpm Accelerations: 15X15 Decelerations: None FHR Category: Category I Estimated Weight (gm): 3500 Presentation: Vertex Admit Comment: patient delivered within 5 min of arrival by nurse controlled delivery. I arrived in room as delivering. there were no complications other than precipitous delivery PLANS FOR LABOR AND DELIVERY Labor and Delivery: None Pain Management: Epidural Feeding Preference: Formula Benefit of Breast Feed Discussed: Yes Circumcision: No INFORMED CONSENT Signature: with User ID: [email or web address]
[2018-11-12] MEDS ORDERED: OXYTOCIN/NORMAL SALINE 20 UNIT/1,000 ML RTUINJ IV PRN (01:06)
[2018-11-12] MEDS ORDERED: DIPHENHYDRAMINE HCL 25 MG CAPSULE PO PRN (01:06)
[2018-11-12] MEDS ORDERED: MEASLES,MUMPS&RUBELLA VACC/PF 0.5 ML VIAL SUBCUT PRN (01:06)
[2018-11-12] MEDS ORDERED: PSEUDOEPHEDRINE HCL 30 MG TABLET PO PRN (01:06)
[2018-11-12] MEDS ORDERED: GLYCERIN/WITCH HAZEL LEAF 1 EACH MED..PAD TP PRN (01:06)
[2018-11-12] MEDS ORDERED: ZOLPIDEM TARTRATE 5 MG TABLET PO PRN (01:06)
[2018-11-12] MEDS ORDERED: DIBUCAINE 1% OINTMENT 28 GM TP PRN (01:06)
[2018-11-12] MEDS ORDERED: PROMETHAZINE HCL 25 MG SUPP.RECT PR PRN (01:06)
[2018-11-12] MEDS ORDERED: PROMETHAZINE HCL INJ 25 MG/1 ML VIAL IV PRN (01:06)
[2018-11-12] MEDS ORDERED: DIPH/PERTUSS(ACELL)/TETANUS VAC/PF 0.5 ML SYR (>=10YO) IM PRN (01:06)
[2018-11-12] MEDS ORDERED: NA PHOS,M-B/NA PHOS,DI-BA (ADULT) 133 ML ENEMA PR PRN (01:06)
[2018-11-12] MEDS ORDERED: BENZOCAINE/MENTHOL AEROSOL SPRAY 56 ML TOP PRN (01:06)
[2018-11-12] MEDS ORDERED: ACETAMINOPHEN 650 MG SUPP.RECT PR PRN (01:06)
[2018-11-12] MEDS ORDERED: MAGNESIUM HYDROXIDE SUSP 30 ML UDCUP PO PRN (01:06)
[2018-11-12] MEDS ORDERED: PROMETHAZINE HCL INJ 25 MG/1 ML VIAL ONE (01:10)
[2018-11-12] MEDS: CLINDAMYCIN 900 MG/D5W RTU 900 MG/50 ML RTUPB IV SCH ×3 (01:18→18:45)
[2018-11-12] MEDS: ACETAMINOPHEN WITH CODEINE #3 TABLET PO PRN ×3 (05:09→14:39)
[2018-11-12] MEDS: IBUPROFEN 800 MG TABLET PO SCH ×3 (09:19→21:57)
[2018-11-12] MEDS: PROMETHAZINE HCL 25 MG TABLET PO PRN (15:20)
[2018-11-12] MEDS: FAMOTIDINE 20 MG TABLET PO SCH ×2 (15:49→21:57)
[2018-11-12] MEDS: SENNOSIDES/DOCUSATE 8.6-50 MG 1 EACH TABLET PO SCH (15:49)
[2018-11-12] MEDS: FERROUS SULFATE 325 MG TABLET PO SCH ×2 (15:49→18:45)
[2018-11-12] MEDS: DOCUSATE SODIUM 100 MG CAPSULE PO SCH ×2 (15:49→18:46)
[2018-11-12] MEDS: PRENATAL VITAMIN W DHA CAPSULE PO SCH (15:49)
[2018-11-13] MEDS: ACETAMINOPHEN WITH CODEINE #3 TABLET PO PRN ×2 (00:21→09:56)
[2018-11-13] MEDS: PROMETHAZINE HCL 25 MG TABLET PO PRN ×2 (03:12→10:41)
[2018-11-13] MEDS: IBUPROFEN 800 MG TABLET PO SCH (06:13)
[2018-11-13 07:02] LABS: HEMATOCRIT 30.7 % (36.0-47.0); HEMOGLOBIN 10.5 g/dL (12.0-15.5); MEAN CORPUSCULAR HGB CONC 34.1 g/dL (32.0-36.0); MEAN CORPUSCULAR VOLUME 85 fl (80-97); PLATELET COUNT 173 10^3/uL (150-450); RED BLOOD COUNT 3.61 10^6/uL (3.72-5.28); RED CELL DISTRIBUTION WIDTH 13.8 % (11.5-14.0); WHITE BLOOD COUNT 7.7 10^3/uL (4.0-10.5)
[2018-11-13 07:51] VITALS: BP 119/68
[2018-11-13] MEDS: SENNOSIDES/DOCUSATE 8.6-50 MG 1 EACH TABLET PO SCH (09:53)
[2018-11-13] MEDS: PRENATAL VITAMIN W DHA CAPSULE PO SCH (09:53)
[2018-11-13] MEDS: FAMOTIDINE 20 MG TABLET PO SCH (09:53)
[2018-11-13] MEDS: FERROUS SULFATE 325 MG TABLET PO SCH (09:53)
[2018-11-13] MEDS: DOCUSATE SODIUM 100 MG CAPSULE PO SCH (09:53)
--- NOTE | 2018-11-13 10:02 | PDOC DISCHARGE SUMMARY ---
General - Admit/Disc Date/PCP Admission Date/Primary Care Provider: 11/12/18 00:42 MARIO NELSON, DO Discharge Date: 11/13/18 - Discharge Diagnosis (1) Acute blood loss anemia Is this a current diagnosis for this admission?: Yes (2) Surrogate Is this a current diagnosis for this admission?: Yes (3) Vaginal delivery Is this a current diagnosis for this admission?: Yes - Additional Information Discharge Diet: Regular Discharge Activity: Activity As Tolerated, Slowly Increase Activity Prescriptions: Acetaminophen with Codeine [Tylenol #3 Tablet] 1 each PO Q6HP PRN #10 tablet PRN Reason: Ibuprofen [Motrin 800 mg Tablet] 800 mg PO Q8 PRN #30 tablet PRN Reason: Home Medications: No122/Iron/Folic Acid [ Multi Tablet] 1 each PO DAILY 02/24/17 Acetaminophen with Codeine [Tylenol #3 Tablet] 1 each PO Q6HP PRN #10 tablet 11/13/18 Ferrous Sulfate [Feosol 325 mg Tablet] 325 mg PO BID tablet 11/13/18 Glycerin/Witch Mamie Lowrys [Tucks Take-Alongs Pads 1 Each] 1 each TP DAILYP PRN med..pad 11/13/18 Ibuprofen [Motrin 800 mg Tablet] 800 mg PO Q8 PRN #30 tablet 11/13/18 History of Present Illness Patient complains of: "I am having contractions and I think my water broke" History of Present Illness: JULISSA EPSTEIN is a 28 year old and leakage of fluid. Patient admits to good movement. Patient denies vaginal bleeding. Hospital Course Hospital Course: Patient delivered within 5 minutes of arrival at labor and delivery. The hospital course was essentially uneventful by day #1, patient ambulating voiding without difficulty. Patient stated that her lochia was decreasing. Patient denied chest pain, shortness of breath, fever/chills or nausea/vomiting. 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 Physical Exam - Physical Exam Vital Signs: Temp Pulse Resp BP Pulse Ox 98.1 F 100 16 119/68 98 11/13/18 07:43 11/13/18 07:43 11/13/18 07:43 11/13/18 07:43 11/13/18 07:43 Intake & Output 11/12/18 11/13/18 11/14/18 06:59 06:59 06:59 Intake Total 300 Balance 300 Weight 87.5 kg General appearance: PRESENT: no acute distress Respiratory exam: PRESENT: clear to auscultation chevy Cardiovascular exam: PRESENT: RRR GI/Abdominal exam: PRESENT: normal bowel sounds, soft Extremities exam: ABSENT: calf tenderness, clubbing, full ROM, joint swelling, pedal edema, tenderness, +1 edema, +2 edema, other Result Laboratory Results: 11/13/18 06:44 11/13/18 06:44 WBC 7.7 RBC 3.61 L Hgb 10.5 L Hct 30.7 L MCV 85 MCH 29.0 MCHC 34.1 RDW 13.8 Plt Count 173 Plan Discharge Plan: 1. Discharge home today 2. I will up in the office in 4 weeks for exam or sooner if needed Time Spent: Less than 30 Minutes
== END 2018-11-13 11:04 | disposition home or self-care (01) | DRG 807 ==
LOC: LC 00:21 → LR 00:42 → 2S 12:36
PROVIDERS: ADMIT Obstetrics & Gynecology; ATTEND Obstetrics & Gynecology
PROC: 10E0XZZ Delivery of Products of Conception, External Approach (ICD-10-PCS; principal; 2018-11-12)
DX: O62.3 Precipitate labor (principal); Z37.0 Single live birth; Z3A.37 37 weeks gestation of pregnancy; Z33.3 Pregnant state, gestational carrier
CPT/HCPCS: 36415; 85027; 86592; 86850; 86900; 86901; J2550; J2590; J3490

== ENCOUNTER → 2018-11-14 | Outpatient (CLI) | payer BC, MEDICAID ==
[2018-11-15 11:40] LABS: HEPATITIS C VIRUS AB <0.1 s/co ratio (0.0-0.9)
[2018-11-15 12:14] LABS: HEPATITS B SURFACE ANTIGEN Negative (Negative)
== END ==
LOC: LAB 13:02
PROVIDERS: ATTEND Obstetrics & Gynecology Gynecology
DX: Z11.3 Encounter for screening for infections with a predominantly sexual mode of transmission (principal); Z13.0 Encounter for screening for diseases of the blood and blood-forming organs and certain disorders involving the immune mechanism; Z11.59 Encounter for screening for other viral diseases
CPT/HCPCS: 36415; 86803; 86804; 87340

== ENCOUNTER → 2018-11-23 | Outpatient (CLI) | payer BC, MEDICAID ==
--- NOTE | 2018-11-23 17:02 | RADIOLOGY REPORT (SQ) ---
EXAM DESCRIPTION: CHEST PA/LATERAL COMPLETED DATE/TIME: 11/23/2018 4:52 pm REASON FOR STUDY: ACUTE BRONCHITIS, UNSPECIFIED (J20.9) COMPARISON: None. EXAM PARAMETERS: NUMBER OF VIEWS: two views TECHNIQUE: Digital Frontal and Lateral radiographic views of the chest acquired. RADIATION DOSE: NA LIMITATIONS: none FINDINGS: LUNGS AND PLEURA: No opacities, masses or pneumothorax. No pleural effusion. MEDIASTINUM AND HILAR STRUCTURES: No masses or contour abnormalities. HEART AND VASCULAR STRUCTURES: Heart normal size. No evidence for failure. BONES: No acute findings. HARDWARE: None in the chest. OTHER: No other significant finding. IMPRESSION: NO SIGNIFICANT RADIOGRAPHIC FINDING IN THE CHEST. TECHNICAL DOCUMENTATION: JOB ID: [id number] [employer]- All Rights Reserved Reading location - IP/workstation name: [email or web address]
[2018-11-23 17:10] LABS: A TYPE INFLUENZA AG NEGATIVE (NEGATIVE); B INFLUENZA AG NEGATIVE (NEGATIVE)
== END ==
LOC: OD 15:50
PROVIDERS: ATTEND Family Medicine Geriatric Medicine
DX: J20.9 Acute bronchitis, unspecified (principal); R06.2 Wheezing; R05 Cough
CPT/HCPCS: 71046; 87804

== ENCOUNTER → 2019-09-28 | Outpatient (CLI) | payer BC, MEDICAID | LOC: OD 10:04 | PROVIDERS: ATTEND Nurse Practitioner Primary Care | DX: Z31.83 Encounter for assisted reproductive fertility procedure cycle (principal) | CPT/HCPCS: 36415; 82670; 84144 ==

== ENCOUNTER → 2019-10-05 | Outpatient (CLI) | payer MEDICAID | LOC: OD 11:01 | PROVIDERS: ATTEND Nurse Practitioner Primary Care | DX: Z31.83 Encounter for assisted reproductive fertility procedure cycle (principal) | CPT/HCPCS: 36415; 82670; 84144 ==

== ENCOUNTER → 2019-10-26 | Outpatient (CLI) | payer MEDICAID | LOC: OD 14:15 | PROVIDERS: ATTEND Obstetrics & Gynecology Reproductive Endocrinology | DX: Z31.9 Encounter for procreative management, unspecified (principal) | CPT/HCPCS: 36415; 82670; 84144; 84702 ==

== ENCOUNTER → 2019-10-30 | Outpatient (CLI) | payer MEDICAID | LOC: OD 08:30 | PROVIDERS: ATTEND Obstetrics & Gynecology Reproductive Endocrinology | DX: Z31.9 Encounter for procreative management, unspecified (principal) | CPT/HCPCS: 36415; 82670; 84144; 84702 ==

== ENCOUNTER → 2019-11-02 | Outpatient (CLI) | payer MEDICAID | LOC: OD 08:39 | PROVIDERS: ATTEND Obstetrics & Gynecology Reproductive Endocrinology | DX: Z31.9 Encounter for procreative management, unspecified (principal) | CPT/HCPCS: 36415; 82670; 84144; 84702 ==

== ENCOUNTER → 2019-11-09 | Outpatient (CLI) | payer OTHER | LOC: OD 09:31 | PROVIDERS: ATTEND Obstetrics & Gynecology Reproductive Endocrinology | DX: Z31.9 Encounter for procreative management, unspecified (principal); Z31.7 Encounter for procreative management and counseling for gestational carrier | CPT/HCPCS: 36415; 82670; 84144; 84702 ==

== ENCOUNTER → 2019-11-23 | Outpatient (CLI) | payer OTHER | LOC: OD 08:57 | PROVIDERS: ATTEND Obstetrics & Gynecology Reproductive Endocrinology | DX: Z31.7 Encounter for procreative management and counseling for gestational carrier (principal); Z31.9 Encounter for procreative management, unspecified | CPT/HCPCS: 36415; 82670; 84144; 84702 ==

== ENCOUNTER → 2019-12-07 | Outpatient (CLI) | payer OTHER | LOC: OD 08:50 | PROVIDERS: ATTEND Obstetrics & Gynecology Reproductive Endocrinology | DX: Z31.9 Encounter for procreative management, unspecified (principal) | CPT/HCPCS: 36415; 82670; 84144 ==

== ENCOUNTER 2020-06-03 09:16 | Emergency (ER) | payer OTHER, MEDICAID ==
[2020-06-03 09:49] LABS: ABSOLUTE EOSINOPHILS # (AUTO) 0.1 10^3/uL (0.0-0.6); ABSOLUTE MONOCYTES (AUTO) 0.4 10^3/uL (0.1-1.4); ABSOLUTE NEUT (AUTO) 5.2 10^3/uL (1.7-8.2); BASOPHILS % (AUTO) 0.5 % (0-2); EOSINOPHILS % (AUTO) 1.6 % (0-6); HEMOGLOBIN 11.7 g/dL (12.0-15.5); LYMPHOCYTES % (AUTO) 26.3 % (13-45); MEAN CORPUSCULAR HGB CONC 33.6 g/dL (32.0-36.0); MEAN CORPUSCULAR VOLUME 84 fl (80-97); MONOCYTES % (AUTO) 4.8 % (3-13); PLATELET COUNT 215 10^3/uL (150-450); RED BLOOD COUNT 4.18 10^6/uL (3.72-5.28); RED CELL DISTRIBUTION WIDTH 13.7 % (11.5-14.0); SEGMENTED NEUTROPHILS % (AUTO) 66.8 % (42-78); TOTAL CELLS COUNTED % (AUTO) 100 %; WHITE BLOOD COUNT 7.8 10^3/uL (4.0-10.5)
[2020-06-03 10:19] LABS: ALBUMIN 3.4 g/dL (3.5-5.0); ALKALINE PHOSPHATASE 122 U/L (38-126); ASPARTATE AMINO TRANSFERASE 23 U/L (14-36); BILIRUBIN,TOTAL 0.7 mg/dL (0.2-1.3); BLOOD UREA NITROGEN 11 mg/dL (7-20); CALCIUM 8.6 mg/dL (8.4-10.2); CREATINE KINASE 59 U/L (30-135); GLUCOSE 86 mg/dL (75-110); POTASSIUM 4.3 mmol/L (3.6-5.0); TOTAL PROTEIN 6.2 g/dL (6.3-8.2)
[2020-06-03 10:24] LABS: CARBON DIOXIDE 24 mmol/L (22-30); CHLORIDE 107 mmol/L (98-107)
[2020-06-03 10:26] LABS: ANION GAP 4 (5-19)
[2020-06-03 10:37] LABS: CREATINE KINASE MB 0.62 ng/mL (<4.55)
[2020-06-03 10:38] LABS: TROPONIN I < 0.012 ng/mL
--- NOTE | 2020-06-03 10:46 | ER Document Report ---
ED Medical Screen (RME) - General Chief Complaint: Chest Pain Stated Complaint: CHEST PAIN Time Seen by Provider: 06/03/20 10:10 Primary Care Provider: RAJINDER MCDOWELL MD [Primary Care Provider] - Follow up as needed TRAVEL OUTSIDE OF THE [place] IN LAST 30 DAYS: No - HPI Notes: 06/03/20 10:44 30-year-old female who is 36 weeks and 1 day G5, P4 with a history of hyperthyroidism, Graves' disease presents to the emergency room from the [facility] for concerns of a blood clot. Patient reports that she has had achiness around her ribs for the last week, when she was at her [facility] today she has been complaining of right upper chest pain that started at 8:00 this morning, has been nonstop and constant, worse when she is laying flat. Denies any radiation. [facility] was concerned about patient having a pulmonary embolism. Denies any shortness of breath, nausea vomiting or diarrhea. Denies any fevers or chills. Patient denies any trauma. Reports pain is 5 out of 10 when she takes a deep breath in or when laying flat. No [id number] medications have been tried. Patient denies any history of blood clots, no recent surgeries, no recent long traveling with car rides or planes. I have greeted and performed a rapid initial assessment of this patient. A com prehensive ED assessment and evaluation of the patient, analysis of test results and completion of the medical decision making process will be conducted by additional ED providers. PHYSICAL EXAMINATION: GENERAL: Well-appearing, well-nourished and in no acute distress. HEAD: Atraumatic, normocephalic. EYES: Pupils equal round extraocular movements intact, conjunctiva are normal. NECK: Normal range of motion CV: s1, s2 regular reproducible right chest wall pain that patient states intensifies the pre-existing pain that she has there LUNGS: No respiratory distress Musculoskeletal: Normal range of motion NEUROLOGICAL: Normal speech, normal gait. SKIN: Warm, Dry, normal turgor, no rashes or lesions noted. - Related Data Allergies/Adverse Reactions: aspirin [Aspirin] Allergy (Severe, Verified 11/07/18 02:00) BREATHING DIFFICULTIES Penicillins Allergy (Severe, Verified 11/07/18 02:00) Anaphylaxis Bleach (Sodium Hypochlorite) Allergy (Verified 11/07/18 02:00) Past Medical History - Past Medical History Cardiac Medical History: Denies: Hx Coronary Artery Disease, Hx Heart Attack, Hx Hypertension - LOW BP Pulmonary Medical History: Denies: Hx Asthma, Hx Bronchitis, Hx COPD, Hx Pneumonia Neurological Medical History: Denies: Hx Cerebrovascular Accident, Hx Seizures GI Medical History: Denies: Hx Hepatitis, Hx Hiatal Hernia, Hx Ulcer Musculoskeltal Medical History: Denies Hx Arthritis Infectious Medical History: Denies: Hx Hepatitis Past Surgical History: Denies: Hx Hysterectomy, Hx Mastectomy, Hx Open Heart Surgery, Hx Pacemaker - Immunizations Hx Diphtheria, Pertussis, Tetanus Vaccination: Yes Physical Exam - Vital signs Vitals: Temp Pulse Resp BP Pulse Ox 98.9 F 91 16 123/75 98 06/03/20 09:19 06/03/20 09:19 06/03/20 09:19 06/03/20 09:19 06/03/20 09:19 Course - Vital Signs Vital signs: Temp Pulse Resp BP Pulse Ox 98.9 F 91 16 123/75 98 06/03/20 09:19 06/03/20 09:19 06/03/20 09:19 06/03/20 09:19 06/03/20 09:19 - Laboratory Result Diagrams: 06/03/20 09:40 06/03/20 09:40 Laboratory results interpreted by me: 06/03/20 06/03/20 09:40 09:40 Hgb 11.7 L Hct 35.0 L Sodium 135.1 L Anion Gap 4 L Total Protein 6.2 L Albumin 3.4 L Doctor's Discharge - Discharge Referrals: RAJINDER MCDOWELL MD [Primary Care Provider] - Follow up as needed
[2020-06-03 11:10] LABS: INTERNATIONAL RATION (INR) 0.95; PARTIAL THROMBOPLASTIN TIME 27.4 SEC (23.5-35.8); PROTHROMBIN TIME 12.9 SEC (11.4-15.4)
--- NOTE | 2020-06-03 12:11 | RADIOLOGY REPORT (SQ) ---
EXAM DESCRIPTION: CTA CHEST IMAGES COMPLETED DATE/TIME: 06/03/2020 11:55 am REASON FOR STUDY: cp/sob COMPARISON: None. TECHNIQUE: CT scan of the chest performed using helical scanning technique with dynamic intravenous contrast injection. Images reviewed with lung, soft tissue and bone windows. Reconstructed coronal and sagittal MPR images reviewed. Additional 3 dimensional post-processing performed to develop Maximal Intensity Projection images (MS P). All images stored on PACS. All CT scanners at this facility use dose modulation, iterative reconstruction, and/or weight based d osing when appropriate to reduce radiation dose to as low as reasonably achievable (ALARA). [facility]: Dose Right [facility]: CareDose [facility]: Dose Right [facility]: Teradose 4D [facility]: [employer] CONTRAST TYPE AND DOSE: contrast/concentration: Isovue 350.00 mmol/ml; Total Contrast Delivered: 65. 0 ml; Total Saline Delivered: 70.0 ml Contrast bolus adequate for pulmonary arteries and aorta. RENAL FUNCTION: BUN 11 creatinine 0.59. RADIATION DOSE: CT Rad equipment meets quality standard of care and radiation dose reduction techniq ues were employed. CTDIvol: 9.9 - 21.8 mGy. DLP: 667 mGy-cm. . LIMITATIONS: None. FINDINGS: LUNGS AND PLEURA: No masses, infiltrates, or pneumothorax. No pleural effusions or pleura l calcifications. AORTA AND GREAT VESSELS: No aneurysm. No dissection. HEART: No pericardial effusion. No significant coronary artery calcifications. PULMONARY ARTERIES: No emboli visualized in the main pulmonary arteries or the segmental branches. HILAR AND MEDIASTINAL STRUCTURES: No identified masses or abnormal nodes. HARDWARE: None in the chest. UPPER ABDOMEN: No significant findings. Limited exam. THYROID AND OTHER SOFT TISSUES: No masses. No adenopathy. BONES: No acute or significant finding. 3D MIPS: Confirm above findings. OTHER: No other significant finding. IMPRESSION: NORMAL CTA OF THE CHEST. NO PULMONARY EMBOLI. COMMENT: Quality ID # [id number]: Final reports with documentation of one or more dose reduction techniques (e.g., Automated exposure control, adjustment of the mA and/or kV according to patient size, use of iterative reconstruction technique) TECHNICAL DOCUMENTATION: JOB ID: [id number] 2010 [employer]- All Rights Reserved Reading location - IP/workstation name: [email or web address]
--- NOTE | 2020-06-03 13:16 | ER Document Report ---
ED Cardiac - General Chief Complaint: Chest Pain Stated Complaint: CHEST PAIN Time Seen by Provider: 06/03/20 10:10 Primary Care Provider: RAJINDER MCDOWELL MD [ACTIVE STAFF] - Follow up as needed Mode of Arrival: Ambulatory Information source: Patient TRAVEL OUTSIDE OF THE [place] IN LAST 30 DAYS: No - HPI Notes: Patient arrives with complaints of chest pain. She states this morning when she woke up she had the sudden onset of severe chest pain that would not go away. It was located on the right side. No significant radiation. It happened after she got out of the shower. No recent trauma. No cough cold or congestion. The pain was not made better or worse by anything that is known. It was a sharp pain. She is had some mild shortness of breath. She went to see her [facility] today as she is 36 weeks . Her [facility] felt that the patient need to come the emergency department for evaluation. - Related Data Allergies/Adverse Reactions: aspirin [Aspirin] Allergy (Severe, Verified 11/07/18 02:00) BREATHING DIFFICULTIES Penicillins Allergy (Severe, Verified 11/07/18 02:00) Anaphylaxis Bleach (Sodium Hypochlorite) Allergy (Verified 11/07/18 02:00) Past Medical History - General Information source: Patient - Social History Smoking Status: Never Smoker Frequency of alcohol use: None Drug Abuse: None Family History: Reviewed & Not Pertinent - Past Medical History Cardiac Medical History: Denies: Hx Coronary Artery Disease, Hx Heart Attack, Hx Hypertension - LOW BP Pulmonary Medical History: Denies: Hx Asthma, Hx Bronchitis, Hx COPD, Hx Pneumonia Neurological Medical History: Denies: Hx Cerebrovascular Accident, Hx Seizures GI Medical History: Denies: Hx Hepatitis, Hx Hiatal Hernia, Hx Ulcer Musculoskeletal Medical History: Denies Hx Arthritis Infectious Medical History: Denies: Hx Hepatitis Past Surgical History: Denies: Hx Hysterectomy, Hx Mastectomy, Hx Open Heart Surgery, Hx Pacemaker - Immunizations Hx Diphtheria, Pertussis, Tetanus Vaccination: Yes Review of Systems - Review of Systems Constitutional: denies: Chills, Fever Cardiovascular: Chest pain. denies: Palpitations Respiratory: Short of breath Gastrointestinal: denies: Abdominal pain -: Yes All other systems reviewed and negative Physical Exam - Vital signs Vitals: Temp Pulse Resp BP Pulse Ox 98.9 F 91 16 123/75 98 06/03/20 09:19 06/03/20 09:19 06/03/20 09:19 06/03/20 09:19 06/03/20 09:19 Interpretation: Normal - General General appearance: Appears well, Alert - HEENT Head: Normocephalic, Atraumatic Eyes: Normal Pupils: PERRL - Respiratory Respiratory status: No respiratory distress Chest status: Nontender Breath sounds: Normal Chest palpation: Normal - Cardiovascular Rhythm: Regular Heart sounds: Normal auscultation Murmur: No - Abdominal Inspection: Gravid female Distension: No distension Bowel sounds: Normal Tenderness: Nontender Organomegaly: No organomegaly - Back Back: Normal, Nontender - Extremities General upper extremity: Normal inspection, Nontender, Normal color, Normal ROM, Normal temperature General lower extremity: Normal inspection, Nontender, Normal color, Normal ROM, Normal temperature, Normal weight bearing. No: Renee's sign - Neurological Neuro grossly intact: Yes Cognition: Normal Orientation: AAOx4 Alexander Coma Scale Eye Opening: Spontaneous Alexander Coma Scale Verbal: Oriented Jayson Coma Scale Motor: Obeys Commands Alexander Coma Scale Total: 15 Speech: Normal Motor strength normal: LUE, RUE, LLE, RLE Sensory: Normal - Psychological Associated symptoms: Normal affect, Normal mood - Skin Skin Temperature: Warm Skin Moisture: Dry Skin Color: Normal Course - Re-evaluation Re-evalutation: 06/03/20 13:14 Patient was referred from [facility] office. It was felt the patient may have a pulmonary embolism due to chest pain. Patient's CTA is negative. Her laboratories are unremarkable. Her EKG also unremarkable. Patient is smiling and laughing in the room. She does not appear acutely ill. I did discuss the case with Dr. Bishop. Patient will be followed up in the office. - Vital Signs Vital signs: Temp Pulse Resp BP Pulse Ox 98.9 F 91 16 123/75 98 06/03/20 09:19 06/03/20 09:19 06/03/20 09:19 06/03/20 09:19 06/03/20 09:19 - Laboratory Result Diagrams: 06/03/20 09:40 06/03/20 09:40 Laboratory results interpreted by me: 06/03/20 06/03/20 09:40 09:40 Hgb 11.7 L Hct 35.0 L Sodium 135.1 L Anion Gap 4 L Total Protein 6.2 L Albumin 3.4 L - Diagnostic Test Radiology reviewed: Image reviewed, Reports reviewed - EKG Interpretation by Me EKG shows normal: Sinus rhythm Rate: Normal - 93 Rhythm: NSR [place]/QRS: No: Right axis deviation, Left axis deviation Discharge - Discharge Clinical Impression: Chest pain during Condition: Stable Disposition: HOME, SELF-CARE Instructions: Chest Pain of Unclear Cause ([facility]) Additional Instructions: Please call the [facility] office to make an appointment for the end of this week or the beginning of next week. Forms: Return to Work Referrals: IDA BISHOP MD [ACTIVE STAFF] - Follow up in 3-5 days
[2020-06-03 13:44] VITALS: BP 112/69
--- NOTE | 2020-06-03 19:38 | EKG REPORT ---
SEVERITY:- NORMAL ECG - SINUS RHYTHM : Confirmed by: Jamari rUibe MD 03-Jun-2020 19:37:30
== END 2020-06-03 13:45 | disposition home or self-care (01) ==
LOC: ER 09:16
DX: O26.93 Pregnancy related conditions, unspecified, third trimester (principal); R07.9 Chest pain, unspecified; Z3A.36 36 weeks gestation of pregnancy; Z88.6 Allergy status to analgesic agent; Z88.0 Allergy status to penicillin
CPT/HCPCS: 36415; 71275; 80053; 82550; 82553; 84484; 85025; 85610; 85730; 93005; 93010; 99283

== ENCOUNTER 2020-06-27 14:29 | Inpatient (IN) | payer MEDICAID, OTHER ==
[2020-06-27] MEDS: RINGERS SOLUTION,LACTATED 1,000 ML IV PRN ×2 (15:10→23:58)
[2020-06-27] MEDS ORDERED: RINGERS SOLUTION,LACTATED 1,000 ML IV ONE (15:35)
[2020-06-27] MEDS ORDERED: OXYTOCIN/0.9 % SODIUM CHLORIDE 30 UNIT/500 ML RTUINJ IV PRN (15:37)
[2020-06-27 16:11] LABS: ABSOLUTE EOSINOPHILS # (AUTO) 0.1 10^3/uL (0.0-0.6); ABSOLUTE LYMPHOCYTES (AUTO) 1.5 10^3/uL (0.5-4.7); ABSOLUTE MONOCYTES (AUTO) 0.3 10^3/uL (0.1-1.4); ABSOLUTE NEUT (AUTO) 6.4 10^3/uL (1.7-8.2); BASOPHILS % (AUTO) 0.3 % (0-2); EOSINOPHILS % (AUTO) 0.9 % (0-6); HEMATOCRIT 32.8 % (36.0-47.0); HEMOGLOBIN 11.2 g/dL (12.0-15.5); MEAN CORPUSCULAR HEMOGLOBIN 28.1 pg (27.0-33.4); MEAN CORPUSCULAR HGB CONC 34.1 g/dL (32.0-36.0); MEAN CORPUSCULAR VOLUME 82 fl (80-97); MONOCYTES % (AUTO) 3.4 % (3-13); PLATELET COUNT 209 10^3/uL (150-450); RED BLOOD COUNT 3.98 10^6/uL (3.72-5.28); RED CELL DISTRIBUTION WIDTH 14.2 % (11.5-14.0); SEGMENTED NEUTROPHILS % (AUTO) 77.4 % (42-78); TOTAL CELLS COUNTED % (AUTO) 100 %; WHITE BLOOD COUNT 8.3 10^3/uL (4.0-10.5)
[2020-06-27 16:18] LABS: APPEARANCE,URINE CLOUDY; BILIRUBIN,URINE NEGATIVE (NEGATIVE); COLOR,URINE YELLOW; GLUCOSE, URINE NEGATIVE (NEGATIVE); KETONES,URINE NEGATIVE (NEGATIVE); LEUKOCYTE ESTERASE,URINE TRACE (NEGATIVE); NITRITE,URINE NEGATIVE (NEGATIVE); PROTEIN,URINE 30 mg/dL (NEGATIVE); URINE SPECIFIC GRAVITY 1.023
[2020-06-27 16:37] LABS: URINE AMPHETAMINES SCREEN NEGATIVE; URINE BARBITURATES SCREEN NEGATIVE; URINE BENZODIAZEPINES SCREEN NEGATIVE; URINE COCAINE SCREEN NEGATIVE; URINE MARIJUANA (THC) SCREEN NEGATIVE; URINE METHADONE SCREEN NEGATIVE; URINE PHENCYCLIDINE SCREEN NEGATIVE
[2020-06-27] MEDS ORDERED: OXYTOCIN 10 UNIT/ML VIAL ONE (16:43)
[2020-06-27] MEDS ORDERED: OXYTOCIN/0.9 % SODIUM CHLORIDE 30 UNIT/500 ML RTUINJ ONE (16:43)
[2020-06-27] MEDS ORDERED: LIDOCAINE 1% INJ-PF (10 MG/ML) 30 ML SDV ONE (16:43)
[2020-06-27] MEDS ORDERED: MISOPROSTOL 0.2 MG TABLET ONE (16:43)
--- NOTE | 2020-06-27 16:50 | Admission Physical ---
Datetime Report Generated by CPN: 06/27/2020 16:50 CURRENT ADMISSION Chief Complaint: Scheduled Induction of Labor Indication for Induction- Other: elective induction Admit Impression : Term, Intrauterine ; Induction of Labor Admit Plan: Admit to Unit; Initiate Labor Induction Protocol ALLERGIES Medication Allergies: Yes Medication Allergies: Penicillins/SV/Anaphylaxis (06/27/2020); Bleach (Sodium Hypochlorite) (06/27/2020); aspirin/SV/BREATHING DIFFI (06/27/2020) Latex: No Latex Allergies OBSTETRICAL HISTORY : 5 Para: 5 Term: 3 : 1 SAB: 0 IAB: 0 Ectopic: 0 Livin Cesareans: 0 VBACs: 0 Multiple Births: 0 Gestational Diabetes: No Rh Sensitization: No Incompetent Cervix: No VETO: No Infertility: No ART Treatment: No Uterine Anomaly: No IUGR: No Hx Previous C/S: No Macrosomia: No Hx Loss/Stillborn: No PIH: No Hx : No Placenta Previa/Abruption: No Depression/PP Depression: Yes PTL/PROM: No Post Hemorrhage: Yes Current Procedures: Ultrasound; ART (IVF, GIFT, ZIFT) Obstetrical History Comments: G1-Boy - G202/13/15-Girl G3-04/12/[id number] bleeding after delivery and D&C done - NO retained placenta G411/12/[id number] SEE RECORDS Alcohol: No Marijuana : No Cocaine: No Other Illicit Drugs: No Cigarettes: Never Smoker. 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 Childbirths; D_C 2016 INFECTIOUS HISTORY Gonorrhea: No Genital Herpes: No Chlamydia: No Tuberculosis: No Syphilis: No Hepatitis: No HIV/AIDS Exposure: No Rash or Viral Illness: No HPV: No PHYSICAL EXAM General: Normal HEENT: Normal Neurologic: Normal Thyroid: Normal Heart: Normal Lungs: Normal Breast: Normal Back: Normal Abdomen: Normal Genitourinary Exam: Normal Extremities: Normal DTRs: Normal Pelvic Type: Adequate Vital Signs: Reviewed; Within Normal Limits VAGINAL EXAM Dilatation: 2 Effacement: 70 Station: -1 Contraction Comments: none MEMBRANES Membranes: Intact FETUS A Monitoring: External US FHR- Baseline: 140 Variability: Moderate 6-25bpm Accelerations: 15X15 Decelerations: None FHR Category: Category I Admit Comment: at 39.4 wks for elective IOL. 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 Pt requesting induction. VE today /-, vtx. GBS negative. Pt denies SROM or bleeding. c/o Hx sciatic pain/ discomfort. Plan to start Pitocin, pt desires an epidural. Will AROM with cervical change. Attending MD is Dr Cardona, lindsey w/ plan of care. PLANS FOR LABOR AND DELIVERY Labor and Delivery: None Pain Management: Epidural Feeding Preference: Formula Benefit of Breast Feed Discussed: Yes Circumcision: No INFORMED CONSENT Assignment: Shireen Cardona MD Signature: with User ID: [email or web address] : with User ID: [email or web address]
[2020-06-27] MEDS ORDERED: EPHEDRINE SULFATE INJ 50 MG/1 ML AMPULE ONE (18:45)
[2020-06-27] MEDS ORDERED: FENTANYL/BUPIVACAINE/NS/PF 300 MCG/150 ML RTUINJ EPI ONE (18:46)
[2020-06-27] MEDS ORDERED: ROPIVACAINE HCL 0.2% INJ/PF (2 MG/ML) 20 ML SDV ONE (18:46)
[2020-06-27] MEDS ORDERED: ONDANSETRON HCL INJ/PF 4 MG/2 ML SDV ONE (23:52)
[2020-06-28] MEDS ORDERED: ONDANSETRON HCL INJ/PF 4 MG/2 ML SDV IV ONE (00:30)
[2020-06-28] MEDS ORDERED: OXYTOCIN/0.9 % SODIUM CHLORIDE 30 UNIT/500 ML RTUINJ ONE (00:56)
[2020-06-28] MEDS ORDERED: FENTANYL CITRATE INJ/PF 100 MCG/2 ML AMPUL ONE (00:58)
[2020-06-28] MEDS ORDERED: OXYTOCIN/0.9 % SODIUM CHLORIDE 30 UNIT/500 ML RTUINJ IV PRN (01:29)
[2020-06-28] MEDS ORDERED: ACETAMINOPHEN 325 MG TABLET PO PRN (01:29)
[2020-06-28] MEDS ORDERED: ACETAMINOPHEN WITH CODEINE #3 TABLET PO PRN (01:29)
[2020-06-28] MEDS ORDERED: MAGNESIUM HYDROXIDE SUSP 30 ML UDCUP PO PRN (01:29)
[2020-06-28] MEDS ORDERED: ZOLPIDEM TARTRATE 5 MG TABLET PO PRN (01:29)
[2020-06-28] MEDS ORDERED: BENZOCAINE/MENTHOL AEROSOL SPRAY 56 ML TOP PRN (01:29)
[2020-06-28] MEDS ORDERED: PROMETHAZINE HCL 25 MG TABLET PO PRN (01:29)
[2020-06-28] MEDS ORDERED: DIPH/PERTUSS(ACELL)/TETANUS VAC/PF 0.5 ML SYR (>=10YO) IM PRN (01:29)
[2020-06-28] MEDS ORDERED: DIBUCAINE 1% OINTMENT 28 GM TP PRN (01:29)
[2020-06-28] MEDS ORDERED: MEASLES,MUMPS&RUBELLA VACC/PF 0.5 ML VIAL SUBCUT PRN (01:29)
[2020-06-28] MEDS ORDERED: PSEUDOEPHEDRINE HCL 30 MG TABLET PO PRN (01:29)
[2020-06-28] MEDS ORDERED: NA PHOS,M-B/NA PHOS,DI-BA (ADULT) 133 ML ENEMA PR PRN (01:29)
[2020-06-28] MEDS ORDERED: PROMETHAZINE HCL 25 MG SUPP.RECT PR PRN (01:29)
[2020-06-28] MEDS ORDERED: PROMETHAZINE HCL INJ 25 MG/1 ML VIAL IV PRN (01:29)
[2020-06-28] MEDS ORDERED: DIPHENHYDRAMINE HCL 25 MG CAPSULE PO PRN (01:29)
[2020-06-28] MEDS ORDERED: IBUPROFEN 800 MG TABLET ONE ×2 (02:51→09:58)
[2020-06-28] MEDS ORDERED: BENZOCAINE/MENTHOL AEROSOL SPRAY 56 ML ONE (02:51)
--- NOTE | 2020-06-28 04:09 | Birth Certificate Data ---
Cert Data Datetime Report Generated by CPJohnny: 06/28/2020 04:09 CERTIFICATE DATA 47a. Care: Yes (06/27/2020 16:13:Cara Holbrook RN) 47b. Date of First Visit: 09/28/2019 00:00 (06/27/2020 16:13:Cara Holbrook RN) 47c. Date of Last Visit: 06/24/2020 00:00 (06/27/2020 16:13:Cara Holbrook RN) 47d. Number of Visits: 13 (06/27/2020 16:13:Cara Holbrook RN) 48a. Number of Prev Live Births: 4 (06/27/2020 16:13:Cara Holbrook RN) 48b. Now Livin (06/27/2020 16:13:Cara Holbrook RN) 48c. Live Births Now : 0 (06/27/2020 16:13:QS system process) 48d. Date of Last Live : 04/12/2019 00:00 (06/27/2020 16:13:Cara Holbrook RN) 48e. Losses: 0 (06/27/2020 16:13:Cara Holbrook RN) RISK FACTORS IN THIS 49a. Diabetes: No (06/27/2020 16:13:Cara Holbrook RN) 49b. Hypertension: No (06/27/2020 16:13:Cara Holbrook RN) 49c. Previous Births: 1 (06/27/2020 16:13:Cara Holbrook RN) 49d. Stillborns: No (06/27/2020 16:13:Cara Holbrook RN) 49d. IUGR: No (06/27/2020 16:13:Cara Holbrook RN) 49e. Infertility Treatment: No (06/27/2020 16:13:Cara Holbrook RN) 49f. Previous Cesareans: 0 (06/27/2020 16:13:Cara Holbrook RN) Mother's Height 50b. Height Inches: 65 (06/27/2020 14:44:QS system process) Mother's Weight 51a. Pre- Weight (lbs): 160 (06/27/2020 16:13:Cara Holbrook RN) 51b. Weight at Delivery (lbs): 202 (06/28/2020 03:27:QS system process) 52. Dt Last Normal Menses Began: 09/12/2019 00:00 (06/27/2020 16:13:Cara Holbrook RN) Infections Present/Treated 53a. Gonorrhea: No (06/27/2020 16:13:Cara Holbrook RN) Results this Hospital Visit : Negative (06/27/2020 16:13:Cara Holbrook RN) 53b. Syphilis: No (06/27/2020 16:13:Cara Holbrook RN) 53c. Chlamydia: No (06/27/2020 16:13:Cara Holbrook RN) Results this Hospital Visit: Negative (06/27/2020 16:13:Cara Holbrook RN) 53d. Hepatitis B: No (06/27/2020 16:13:Cara Holbrook RN) Results this Hospital Visit: Negative (06/27/2020 16:13:Cara Holbrook RN) 53e. Hepatitis C: Negative (06/27/2020 16:13:Cara Holbrook RN) 53h. Mother Tested for HBsAG: Yes (06/27/2020 16:13:Cara Holbrook RN) 53i. Date Tested: 12/03/2016 00:00 (06/27/2020 16:13:Cara Holbrook RN) 53j. Test Result: Negative (06/27/2020 16:13:Cara Holbrook RN) Obstetric Procedures 54a, b, c. Obstetric Procedures: Ultrasound; ART (IVF, GIFT, ZIFT) (06/27/2020 16:13:Craa Holbrook RN) Cigarette Smoking 55a. 3 Months Before Preg - Ci (06/27/2020 16:13:Cara Holbrook RN) 55b. 1st Trimester of Preg- Ci (06/27/2020 16:13:Cara Holbrook RN) 55c. 2nd Trimester of Preg- Ci (06/27/2020 16:13:Cara Holbrook RN) 55d. 3rd Trimester of Preg- Ci (06/27/2020 16:13:Cara Holbrook RN) Onset of Labor 56a. PROM >12 Hrs: 2.28 (06/27/2020 16:13:QS system process) 56b. Precipitous Labor <3 Hrs: 2 (06/27/2020 16:13:QS system process) 56c. Prolonged Labor > 20 Hrs: 2 (06/27/2020 16:13:QS system process) 57a. Induction of Labor: Induction (06/27/2020 16:13:Elizabeth Jackson RN) 57a. Induction of Labor: Cytotec @ 1000 (06/28/2020 00:59:Elizabeth Jackson RN) 57a. Induction of Labor: pitocin (06/27/2020 16:13:Shireen Cardona MD ([facility])) 57c. Non-Vertex Presentation A: Vertex (06/27/2020 16:13:Elizabeth Jackson RN) 57d. Steroids - Lung Mat: None (06/27/2020 16:13:Elizabeth Jackson RN) 57d. Steroids - Lung Mat: Not Applicable (06/27/2020 16:13:Elizabeth Jackson RN) 57g. Moderate/Heavy Meconium: Clear (06/27/2020 22:36:Elizabeth Jackson RN) 57h. Intolerance of Labor: N/A (06/27/2020 16:13:Elizabeth Jackson RN) : N/A (06/27/2020 16:13:Elizabeth Jackson RN) 57i. Epidural/Spinal Anesthesia: Epidural (06/27/2020 16:13:Elizabeth Jackson RN) Method of Delivery 58a. Forceps - Unsuccessful A: N/A (06/27/2020 16:13:Elizabeth Jackson RN) 58b. Vacuum - Unsuccessful A: N/A (06/27/2020 16:13:Elizabeth Jackson RN) 58c. Presentation at 58c. Presentation at - A : Vertex (06/27/2020 16:13:Elizabeth Jackson RN) 58c. Presentation at - A : N/A (06/27/2020 16:13:Elizabeth Ring, RN) 58c. Presentation at - A : Cephalic (06/27/2020 22:36:Elizabeth Ring, RN) Final Route and Method of Del 58d. Baby A Route/Delivery: Vaginal (06/28/2020 00:53:Elizabeth Ring, RN) 58e. Trial of Labor Attempted: No (06/27/2020 16:13:Elizabeth Ring, RN) 58e. Trial of Labor Attempted A: N/A (06/27/2020 16:13:Elizabeth Ring, RN) 58e. Trial of Labor Attempted B: N/A (06/27/2020 16:13:Elizabeth Ring, RN) Maternal Morbidity 59b. 3rd or 4th Degree Lacs: None (06/27/2020 16:13:Elizabeth Ring, RN) 59b. 3rd or 4th Degree Lacs: N/A (06/27/2020 16:13:Elizabeth Ring, RN) Birthweight Baby A: 3435 (06/27/2020 16:13:Elizabeth Ring, RN) 60a. Pounds : 7 (06/27/2020 16:13:QS system process) 60b. Ounces: 9 (06/27/2020 16:13:QS system process) 61. GA at Delivery Baby A: 39.5 (06/27/2020 16:13:Elizabeth Ring, RN) : Full Term- 39- 40.6 Weeks (06/27/2020 16:13:QS system process) 62a. 5 Minute Baby A: 9 (06/27/2020 16:13:QS system process)
--- NOTE | 2020-06-28 04:10 | Delivery Summary ---
Del Sum A-C Datetime Report Generated by CPN: 06/28/2020 04:10 DELIVERY PERSONNEL DELIVERY PERSONNEL: [id number] Delivery Doctor:: Shireen Cardona MD EDUCATION DEPARTMENT REGISTRAR:: james granados Labor and Delivery Nurse:: Elizabeth Jackson RN Nursery Nurse:: Carmen Gomez RN Public Policy Manager/SEALS ENGRAVER: Ginger Ross, ST MATERNAL INFORMATION Delivery Anesthesia: Epidural Medications After Delivery: Pitocin 30 Units in 500ml NS/D5W; Cytotec 1000mcg Per Rectum/Vagina Estimated Blood Loss (ml): 100 Delivery QBL: 50 Delivery QBL Comment: Total QBL: 159 Maternal Complications: None Provider Comments: VMI delivered in [facility] presentation. Shoulders and body delivered without difficulty. double cord around right foot. Cord doubly clamped and cut. to warmer as patient is gestational surrogate. placenta delivered intact spontaneously. Mild intermittent uterine atony, uterine crudee performed with no e/o retained products/placenta. Atony resolved with fundal rub and cytotec 1000mcg [place]. No perineal lacerations. Good hemostasis and scant bleeding with fundal rub and post cytotec. FF at U. no perineal lacerations. Baby to nursery per patient wishes. Mother stable upon provider leaving the room. LABOR SUMMARY EDC: 06/30/2020 00:00 No. Babies in Womb: 1 Attempted: No Labor Anesthesia: Epidural LABOR INFORMATION Reason for Induction: Other Reason for Induction- Other: social, surrogate and needed family support since bioparents unable to be present Onset of Labor: 06/27/2020 22:36 Complete Dilatation: 06/28/2020 00:49 Cervical Ripening Agents: Cytotec @ 1000 Other Ripening Agents: pitocin Oxytocin: Induction Group B Beta Strep: Negative Antibiotics # of Doses: 0 Name of Antibiotic Given: N/A Steroids Given: None Reason Steroids Not Administered: Not Applicable MEMBRANES Membranes Rupture Method: Artificial Rupture of Membranes: 06/27/2020 22:36 Length of Rupture (hr): 2.28 Amniotic Fluid Color: Clear Amniotic Fluid Amount: Small STAGES OF LABOR Stage 1 hr: 2 Stage 1 min: 13 Stage 2 hr: 0 Stage 2 min: 4 Stage 3 hr: 0 Stage 3 min: 4 Total Time in Labor hr: 2 Total Time in Labor min: 21 VAGINAL DELIVERY Episiotomy: None Laceration #1: None Laceration Extension #1: N/A Laceration Repair: Not Applicable Sponge Count Correct: Yes Sharps Count Correct: Yes CSECTION DELIVERY Primary Indication: N/A Secondary Indication: N/A CSection Incidence: N/A Labor: N/A Elective: N/A CSection Incision: N/A BABY A INFORMATION Infant Delivery Date/Time: 06/28/2020 00:53 Method of Delivery: Vaginal Nurse Controlled Delivery: No Born in Route : No : N/A Forceps: N/A Vacuum Extraction: N/A Shoulder Dystocia : No PRESENTATION/POSITION BABY A Presentation: Cephalic Cephalic Presentation: Vertex Vertex Position: Right Occipital Anterior Breech Presentation: N/A PLACENTA INFORMATION BABY A Placenta Delivery Time : 06/28/2020 00:57 Placenta Method of Delivery: Spontaneous Placenta Status: Delivered SCORES BABY A Heart Rate 1 min: >100 bpm Resp Effort 1 min: Good Cry Reflex Irritability 1 min: Cough or Sneeze or Pulls Away Muscle Tone 1 min: Active Motion Color 1 min: Body [place], Extremities Blue Resuscitation Effort 1 min: Tactile Stimulation SCORE 1 MIN: 9 Heart Rate 5 min: >100 bpm Resp Effort 5 min: Good Cry Reflex Irritability 5 min: Cough or Sneeze or Pulls Away Muscle Tone 5 min: Active Motion Color 5 min: Body [place], Extremities Blue Resuscitation Effort 5 min: Tactile Stimulation SCORE 5 MIN: 9 INFANT INFORMATION BABY A Gestational Age at Delivery: 39.5 Gestational Status: Full Term- 39- 40.6 Weeks Outcome : Liveborn Infant Condition : Stable Sex: Male IDENTIFICATION BABY A Infant Verification Date/Time: 06/28/2020 01:48 ID Band Number: [id number] Mother's Name Verified: Yes RN Verifying : B. Ring and H. Ty WEIGHT/LENGTH BABY A Infant Birthweight (gm): 3435 Weight (lb): 7 Infant Weight (oz): 9 Infant Length (in): 20.00 Infant Length (cm): 50.80 CORD INFORMATION BABY A No. Cord Vessels: 3 Nuchal Cord : N/A Cord Blood Taken: Yes-For Storage (Mom's Blood type +) Suction: Mouth ASSESSMENT BABY A Complications: Multiple Variable Decels; Other Infant Complications- Other: double foot cord Physical Findings at Delivery: Within Normal Limits Physical Findings- Other: See full nursery assessment Infant Respirations: Appears Normal Skin to Skin: No Strategic Intelligence Officer/ALS Called : No Infant Care By: Angeline Gomez RN Transferred To: Nursery BABY B INFORMATION : N/A SIGNATURES Signature: with User ID: Sylvie
[2020-06-28] MEDS: ACETAMINOPHEN WITH CODEINE #3 TABLET PO PRN ×4 (08:24→22:19)
[2020-06-28] MEDS: FERROUS SULFATE 325 MG TABLET PO SCH ×2 (09:59→17:10)
[2020-06-28] MEDS: SENNOSIDES/DOCUSATE 8.6-50 MG 1 EACH TABLET PO SCH (09:59)
[2020-06-28] MEDS: DOCUSATE SODIUM 100 MG CAPSULE PO SCH ×2 (10:00→17:10)
[2020-06-28] MEDS: PRENATAL VITAMIN W DHA CAPSULE PO SCH (10:00)
[2020-06-28] MEDS: FAMOTIDINE 20 MG TABLET PO SCH ×2 (10:00→22:17)
[2020-06-28] MEDS: GLYCERIN/WITCH HAZEL LEAF 1 EACH MED..WIPE TP PRN (10:06)
[2020-06-28] MEDS: IBUPROFEN 800 MG TABLET PO SCH ×3 (10:53→22:17)
--- NOTE | 2020-06-28 11:56 | PDOC PROGRESS REPORT ---
Subjective-OB Progress Note for:: 06/28/20 - Delivery Day, pt c/o pain at epidural site. Diagnosed w/ hematoma at epidural site. B+, bottle feeding. Surrogate Delivery for a couple who is in [place]. B+ bottlefeeding Physical Exam (OB) Vital Signs: Temp Pulse Resp BP Pulse Ox 97.9 F 64 16 106/63 99 06/28/20 08:36 06/28/20 07:44 06/28/20 07:44 06/28/20 07:44 06/28/20 07:44 Intake & Output 06/27/20 06/28/20 06/29/20 06:59 06:59 06:59 Intake Total 865 Balance 865 Weight 91.6 kg - General General Appearance: Appears well, Alert In distress: None - Maternal Morbidity 59. Maternal Morbidity (serious complications experinced by the mother asso ciated with labor and delivery: None of the above - Lochia Lochia Amount: Small 10-25 ml Lochia Color: Rubra/Red - Abdomen Description: Soft Hernia Present: No Fundal Description: Firm, Midline Fundal Height: u/u - u/2 - Respiratory Respiratory Status: No respiratory distress - Genitourinary Genitourinary Note: voiding - Extremities Upper extremity: Normal inspection Lower extremities: Normal inspection - Neurological Cognition: Normal Orientation: AAOx4 - Psychological Associated symptoms: Normal affect, Normal mood - Skin Skin Temperature: Warm Skin Moisture: Dry Skin note:: bandage applied over epidural site, no redness or drainage noted, no bruising noted on her back Objective-Diagnostic Laboratory: 06/27/20 15:57 06/27/20 06/27/20 06/27/20 15:00 15:57 15:57 WBC 8.3 RBC 3.98 Hgb 11.2 L Hct 32.8 L MCV 82 MCH 28.1 MCHC 34.1 RDW 14.2 H Plt Count 209 Seg Neutrophils % 77.4 Urine Color YELLOW Urine Appearance CLOUDY Urine pH 5.0 Ur Specific [place] 1.023 Urine Protein 30 H Urine Glucose (UA) NEGATIVE Urine Ketones NEGATIVE Urine Blood NEGATIVE Urine Nitrite NEGATIVE Ur Leukocyte Esterase TRACE H Urine WBC (Auto) 6 Urine RBC (Auto) 2 Blood Type B POSITIVE Antibody Screen NEGATIVE Assessment and Plan(PN) - Assessment and Plan (1) (normal spontaneous vaginal delivery) Is this a current diagnosis for this admission?: Yes (2) Encounter for elective induction of labor Is this a current diagnosis for this admission?: Yes (3) Gallbladder disease affecting Qualifiers: Trimester: second trimester Qualified Code(s): O26.612 - Liver and biliary tract disorders in , second trimester; K82.9 - Disease of gallbladder, unspecified Is this a current diagnosis for this admission?: Yes (4) Sciatic leg pain Is this a current diagnosis for this admission?: Yes (5) Surrogate Is this a current diagnosis for this admission?: Yes Plan:: ice pack to epidural site, ambulation encouraged, Routine PP orders - Time Spent with Patient Time with patient: Less than 15 minutes - Disposition Anticipated Discharge Disposition: Home, Self Care Anticipated Discharge Timeframe: within 24 hours
[2020-06-29] MEDS: ACETAMINOPHEN WITH CODEINE #3 TABLET PO PRN ×4 (04:24→21:29)
[2020-06-29] MEDS: IBUPROFEN 800 MG TABLET PO SCH ×3 (06:36→21:30)
[2020-06-29 06:38] LABS: HEMATOCRIT 32.5 % (36.0-47.0); HEMOGLOBIN 10.9 g/dL (12.0-15.5); MEAN CORPUSCULAR HEMOGLOBIN 27.8 pg (27.0-33.4); MEAN CORPUSCULAR HGB CONC 33.5 g/dL (32.0-36.0); MEAN CORPUSCULAR VOLUME 83 fl (80-97); PLATELET COUNT 181 10^3/uL (150-450); RED BLOOD COUNT 3.92 10^6/uL (3.72-5.28); RED CELL DISTRIBUTION WIDTH 14.4 % (11.5-14.0); WHITE BLOOD COUNT 7.8 10^3/uL (4.0-10.5)
[2020-06-29 07:00] LABS: ALBUMIN 2.4 g/dL (3.5-5.0); ALKALINE PHOSPHATASE 124 U/L (38-126); AMYLASE 32 U/L (30-110); ASPARTATE AMINO TRANSFERASE 20 U/L (14-36); BILIRUBIN,DIRECT 0.2 mg/dL (0.0-0.4); BILIRUBIN,TOTAL 0.2 mg/dL (0.2-1.3); BLOOD UREA NITROGEN 6 mg/dL (7-20); CALCIUM 7.9 mg/dL (8.4-10.2); GLUCOSE 117 mg/dL (75-110); POTASSIUM 4.2 mmol/L (3.6-5.0); TOTAL PROTEIN 4.5 g/dL (6.3-8.2)
[2020-06-29 07:04] LABS: CARBON DIOXIDE 24 mmol/L (22-30); CHLORIDE 111 mmol/L (98-107)
[2020-06-29 07:08] LABS: ANION GAP 3 (5-19)
--- NOTE | 2020-06-29 09:50 | PDOC PROGRESS REPORT ---
Subjective-OB Progress Note for:: 06/29/20 - PP day #1, doing well, would like to possibly go home later on today if baby is able to. B+, bottlefeeding, Surrogate Physical Exam (OB) Vital Signs: Temp Pulse Resp BP Pulse Ox 97.9 F 87 18 109/59 L 97 06/29/20 07:50 06/29/20 07:28 06/29/20 07:28 06/29/20 07:28 06/29/20 07:28 Intake & Output 06/28/20 06/29/20 06/30/20 06:59 06:59 06:59 Intake Total 865 Balance 865 Weight 91.6 kg - General General Appearance: Appears well, Alert In distress: None - PIH/Pre-Eclampsia Clonus: Negative - Maternal Morbidity 59. Maternal Morbidity (serious complications experinced by the mother associated with labor and delivery: None of the above - Lochia Lochia Amount: Scant < 10 ml Lochia Color: Rubra/Red - Abdomen Description: Tender, Soft Hernia Present: No Fundal Description: Firm, Midline Fundal Height: u/u - u/2 - Respiratory Respiratory Status: No respiratory distress - Abdominal Distension: No distension Tenderness: Nontender - Genitourinary Genitourinary Note: voiding - Extremities Upper extremity: Normal inspection Lower extremities: Normal inspection - Neurological Cognition: Normal Orientation: AAOx4 - Psychological Associated symptoms: Normal affect, Normal mood - Skin Skin Temperature: Warm Objective-Diagnostic Laboratory: 06/29/20 06:13 06/29/20 06:13 06/29/20 06/29/20 06:13 06:13 WBC 7.8 RBC 3.92 Hgb 10.9 L Hct 32.5 L MCV 83 MCH 27.8 MCHC 33.5 RDW 14.4 H Plt Count 181 Sodium 138.0 Potassium 4.2 Chloride 111 H Carbon Dioxide 24 Anion Gap 3 L BUN 6 L Creatinine 0.55 Est GFR ( Amer) > 60 Glucose 117 H Calcium 7.9 L Total Bilirubin 0.2 AST 20 Alkaline Phosphatase 124 Total Protein 4.5 L Albumin 2.4 L Amylase 32 Lipase 175.4 Assessment and Plan(PN) - Assessment and Plan (1) (normal spontaneous vaginal delivery) Is this a current diagnosis for this admission?: Yes (2) Encounter for elective induction of labor Is this a current diagnosis for this admission?: Yes (3) Gallbladder disease affecting Qualifiers: Trimester: second trimester Qualified Code(s): O26.612 - Liver and biliary tract disorders in , second trimester; K82.9 - Disease of gallbladder, unspecified Is this a current diagnosis for this admission?: Yes (4) Sciatic leg pain Is this a current diagnosis for this admission?: Yes (5) Surrogate Is this a current diagnosis for this admission?: Yes Plan:: Ambulation encouraged. Routine PP orders - Time Spent with Patient Medications reviewed and adjusted accordingly: Yes - Disposition Anticipated Discharge Disposition: Home, Self Care Anticipated Discharge Timeframe: within 24 hours
[2020-06-29] MEDS: DOCUSATE SODIUM 100 MG CAPSULE PO SCH ×2 (09:56→17:20)
[2020-06-29] MEDS: FAMOTIDINE 20 MG TABLET PO SCH ×2 (09:56→21:30)
[2020-06-29] MEDS: PRENATAL VITAMIN W DHA CAPSULE PO SCH (09:56)
[2020-06-29] MEDS: SENNOSIDES/DOCUSATE 8.6-50 MG 1 EACH TABLET PO SCH (09:56)
[2020-06-29] MEDS: FERROUS SULFATE 325 MG TABLET PO SCH ×2 (09:56→17:20)
[2020-06-29] MEDS: GLYCERIN/WITCH HAZEL LEAF 1 EACH MED..WIPE TP PRN ×2 (18:52→23:47)
[2020-06-30] MEDS: ACETAMINOPHEN WITH CODEINE #3 TABLET PO PRN ×3 (03:01→13:01)
[2020-06-30] MEDS: IBUPROFEN 800 MG TABLET PO SCH ×2 (05:15→13:01)
[2020-06-30 08:38] VITALS: BP 114/67
[2020-06-30] MEDS: DOCUSATE SODIUM 100 MG CAPSULE PO SCH (09:27)
[2020-06-30] MEDS: FERROUS SULFATE 325 MG TABLET PO SCH (09:27)
[2020-06-30] MEDS: FAMOTIDINE 20 MG TABLET PO SCH (09:27)
[2020-06-30] MEDS: PRENATAL VITAMIN W DHA CAPSULE PO SCH (09:27)
[2020-06-30] MEDS: SENNOSIDES/DOCUSATE 8.6-50 MG 1 EACH TABLET PO SCH (09:27)
--- NOTE | 2020-06-30 10:08 | PDOC DISCHARGE SUMMARY ---
Impression - Admit/DC Date/PCP Admission Date/Primary Care Provider: 06/27/20 14:29 RAJINDER PALACIOS MD Discharge Date: 06/30/20 - Discharge Diagnosis (1) (normal spontaneous vaginal delivery) Is this a current diagnosis for this admission?: Yes (2) Sciatic leg pain Is this a current diagnosis for this admission?: Yes (3) Gallbladder disease affecting Is this a current diagnosis for this admission?: Yes (4) Encounter for elective induction of labor Is this a current diagnosis for this admission?: Yes (5) Surrogate Is this a current diagnosis for this admission?: Yes - Additional Information Discharge Diet: Regular Discharge Activity: Balance Activity w/Rest, Pelvic Rest Referrals: RAJINDER PALACIOS MD [Primary Care Provider] - Prescriptions: Ibuprofen [Motrin 800 mg Tablet] 800 mg PO Q8HP PRN #90 tablet PRN Reason: Acetaminophen with Codeine [Tylenol #3 Tablet] 1 each PO Q4HP PRN #20 tablet PRN Reason: Home Medications: No122/Iron/Folic Acid [ Multi Tablet] 1 each PO DAILY 02/24/17 Cyclobenzaprine HCl [Flexeril 10 mg Tablet] 10 mg PO PRN PRN 06/27/20 Acetaminophen with Codeine [Tylenol #3 Tablet] 1 each PO Q4HP PRN #20 tablet 06/30/20 Ibuprofen [Motrin 800 mg Tablet] 800 mg PO Q8HP PRN #90 tablet 06/30/20 Hospital Course 59. Maternal Morbidity (serious complications experinced by the mother associated with labor and delivery: None of the above Results Laboratory Results: WBC 7.8 10^3/uL (4.0-10.5) 06/29/20 06:13 RBC 3.92 10^6/uL (3.72-5.28) 06/29/20 06:13 Hgb 10.9 g/dL (12.0-15.5) L 06/29/20 06:13 Hct 32.5 % (36.0-47.0) L 06/29/20 06:13 MCV 83 fl (80-97) 06/29/20 06:13 MCH 27.8 pg (27.0-33.4) 06/29/20 06:13 MCHC 33.5 g/dL (32.0-36.0) 06/29/20 06:13 RDW 14.4 % (11.5-14.0) H 06/29/20 06:13 Plt Count 181 10^3/uL (150-450) 06/29/20 06:13 Lymph % (Auto) 18.0 % (13-45) 06/27/20 15:57 [place] % (Auto) 3.4 % (3-13) 06/27/20 15:57 Eos % (Auto) 0.9 % (0-6) 06/27/20 15:57 Baso % (Auto) 0.3 % (0-2) 06/27/20 15:57 Absolute Neuts (auto) 6.4 10^3/uL (1.7-8.2) 06/27/20 15:57 Absolute Lymphs (auto) 1.5 10^3/uL (0.5-4.7) 06/27/20 15:57 Absolute Monos (auto) 0.3 10^3/uL (0.1-1.4) 06/27/20 15:57 Absolute Eos (auto) 0.1 10^3/uL (0.0-0.6) 06/27/20 15:57 Absolute Basos (auto) 0.0 10^3/uL (0.0-0.2) 06/27/20 15:57 Seg Neutrophils % 77.4 % (42-78) 06/27/20 15:57 Sodium 138.0 mmol/L (137-145) 06/29/20 06:13 Potassium 4.2 mmol/L (3.6-5.0) 06/29/20 06:13 Chloride 111 mmol/L (98-107) H 06/29/20 06:13 Carbon Dioxide 24 mmol/L (22-30) 06/29/20 06:13 Anion Gap 3 (5-19) L 06/29/20 06:13 BUN 6 mg/dL (7-20) L 06/29/20 06:13 Creatinine 0.55 mg/dL (0.52-1.25) 06/29/20 06:13 Est GFR ( Amer) > 60 (>60) 06/29/20 06:13 Est GFR (MDRD) Non-Af > 60 (>60) 06/29/20 06:13 Glucose 117 mg/dL (75-110) H 06/29/20 06:13 Calcium 7.9 mg/dL (8.4-10.2) L 06/29/20 06:13 Total Bilirubin 0.2 mg/dL (0.2-1.3) 06/29/20 06:13 Direct Bilirubin 0.2 mg/dL (0.0-0.4) 06/29/20 06:13 Neonat Total Bilirubin Not Reportable 06/29/20 06:13 Neonat Direct Bilirubin Not Reportable 06/29/20 06:13 Neonat Indirect Bili Not Reportable 06/29/20 06:13 AST 20 U/L (14-36) 06/29/20 06:13 ALT 11 U/L (<35) 06/29/20 06:13 Alkaline Phosphatase 124 U/L (38-126) 06/29/20 06:13 Total Protein 4.5 g/dL (6.3-8.2) L 06/29/20 06:13 Albumin 2.4 g/dL (3.5-5.0) L 06/29/20 06:13 Amylase 32 U/L (30-110) 06/29/20 06:13 Lipase 175.4 U/L (23-300) 06/29/20 06:13 Urine Color YELLOW 06/27/20 15:00 Urine Appearance CLOUDY 06/27/20 15:00 Urine pH 5.0 (5.0-9.0) 06/27/20 15:00 Ur Specific [place] 1.023 06/27/20 15:00 Urine Protein 30 mg/dL (NEGATIVE) H 06/27/20 15:00 Urine Glucose (UA) NEGATIVE mg/dL (NEGATIVE) 06/27/20 15:00 Urine Ketones NEGATIVE mg/dL (NEGATIVE) 06/27/20 15:00 Urine Blood NEGATIVE (NEGATIVE) 06/27/20 15:00 Urine Nitrite NEGATIVE (NEGATIVE) 06/27/20 15:00 Urine Bilirubin NEGATIVE (NEGATIVE) 06/27/20 15:00 Urine Urobilinogen 2.0 mg/dL (<2.0) H 06/27/20 15:00 Ur Leukocyte Esterase TRACE (NEGATIVE) H 06/27/20 15:00 Urine WBC (Auto) 6 /HPF 06/27/20 15:00 Urine RBC (Auto) 2 /HPF 06/27/20 15:00 Urine Bacteria (Auto) 3+ /HPF 06/27/20 15:00 Squamous Epi Cells Auto 19 /HPF 06/27/20 15:00 Urine Mucus (Auto) MANY /LPF 06/27/20 15:00 Urine Ascorbic Acid 40 (NEGATIVE) H 06/27/20 15:00 Urine Opiates Screen NEGATIVE 06/27/20 15:00 Urine Methadone Screen NEGATIVE 06/27/20 15:00 Ur Barbiturates Screen NEGATIVE 06/27/20 15:00 Ur Phencyclidine Scrn NEGATIVE 06/27/20 15:00 Ur Amphetamines Screen NEGATIVE 06/27/20 15:00 U Benzodiazepines Scrn NEGATIVE 06/27/20 15:00 Urine Cocaine Screen NEGATIVE 06/27/20 15:00 U Marijuana (THC) Screen NEGATIVE 06/27/20 15:00 RPR NONREACTIVE (NONREACTIVE) 06/27/20 15:57 Rubella IgG Antibody 11.00 IU/mL 06/29/20 06:13 Rubella IgG Ab Interp POSITIVE 06/29/20 06:13 Blood Type B POSITIVE 06/27/20 15:57 Antibody Screen NEGATIVE 06/27/20 15:57 Plan Plan of Treatment: follow up in 4 weeks at [facility] for post check
[2020-07-02 07:38] LABS: HEPATITIS C VIRUS AB <0.1 s/co ratio (0.0-0.9)
[2020-07-02 07:50] LABS: HEPATITS B SURFACE ANTIGEN Negative (Negative)
== END 2020-06-30 14:10 | disposition home or self-care (01) | DRG 807 ==
LOC: LR 14:29 → 2S 06-28 03:27
PROVIDERS: ADMIT Student in an Organized Health Care Education/Training Program; ATTEND Student in an Organized Health Care Education/Training Program
PROC: 10907ZC Drainage of Amniotic Fluid, Therapeutic from Products of Conception, Via Natural or Artificial Opening (ICD-10-PCS; 2020-06-27)
PROC: 10E0XZZ Delivery of Products of Conception, External Approach (ICD-10-PCS; principal; 2020-06-28)
PROC: 3E033VJ Introduction of Other Hormone into Peripheral Vein, Percutaneous Approach (ICD-10-PCS; 2020-06-28)
DX: O26.62 Liver and biliary tract disorders in childbirth (principal); Z37.0 Single live birth; K82.9 Disease of gallbladder, unspecified; Z20.828 Contact with and (suspected) exposure to other viral communicable diseases; M54.30 Sciatica, unspecified side; O99.89 Other specified diseases and conditions complicating pregnancy, childbirth and the puerperium; O69.2XX0 Labor and delivery complicated by other cord entanglement, with compression, not applicable or unspecified; Z88.6 Allergy status to analgesic agent; Z88.0 Allergy status to penicillin; Z91.048 Other nonmedicinal substance allergy status; Z3A.39 39 weeks gestation of pregnancy
CPT/HCPCS: 1967; 36415; 80053; 80307; 81001; 82150; 83690; 85025; 85027; 86592; 86762; 86803; 86804; 86850; 86900; 86901; 87340; 94760; J2405; J2590; J2795; J3010; J3490